=== PATIENT | female | born 1980 | race Caucasian/White ===

== ENCOUNTER 2020-01-13 09:25 | Outpatient (CLI) | payer OTHER, SELFPAY ==
--- NOTE | ~2020-01-13 | US_ITS ---
US abdomen complete EXAMINATION: US Abdomen Complete INDICATION: Right abdominal pain PROCEDURE: Realtime High Resolution abdomen ultrasound. COMPARISON: No prior studies for comparison FINDINGS: Gallbladder within normal limits. No gallstones, pericholecystic fluid, gallbladder wall t hickening or biliary dilatation. Common bile duct measures 2.2 mm. Liver echotexture within normal limits without focal mass. Pancreas within normal limits. Pancreati c tail is obscured by bowel gas. Spleen is unremarkeable. Renal echotexture is within normal limits bilaterally without hydronephrosis, contour deforming mass or renal stone. Right kidney measures 11 c m. Left kidney measures 11.3 cm. Visualized aspects of the aorta and IVC are within normal limits. Portal vein is patent. No sonograph ic Cat's sign indicated by the technologist. IMPRESSION: 1: Normal abdominal ultrasound. Reviewed, dictated and finalized at location A. [employer]
== END 2020-01-13 09:26 | disposition home or self-care (01) ==
PROVIDERS: PCP Family Medicine; Visit Provider Nurse Practitioner Family
DX: R10.31 Right lower quadrant pain (principal); R31.9 Hematuria, unspecified
CPT/HCPCS: 76700

== ENCOUNTER → 2020-02-18 11:50 | Outpatient (CLI) | payer OTHER, SELFPAY ==
--- NOTE | ~2020-02-18 | MM_ITS ---
EXAMINATION: MM screening benjamin BI w marion HISTORY: Screening TECHNIQUE: Craniocaudal and mediolateral oblique 3-D tomosynthesis images were obtained and synthetic 2-D images were generated. CAD analysis was submitted and interpreted. COMPARISON: No prior mammogram is available for comparison at this institution. BREAST PARENCHYMAL COMPOSITION: There are scattered areas of fibroglandular density. FINDINGS: There is no evidence of suspicious mass, calcification, or architectural distortion to sugg est malignancy in either breast. There has been no suspicious interval change. IMPRESSION: 1. No mammographic evidence of malignancy. 2. Recommend routine screening mammography in one year. 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
== END ==
DX: Z12.31 Encounter for screening mammogram for malignant neoplasm of breast (principal)
CPT/HCPCS: 77063; 77067

== ENCOUNTER 2020-09-01 13:54 | Emergency (ER) | payer OTHER, SELFPAY ==
--- NOTE | ~2020-09-01 | XR_ITS ---
EXAMINATION: XR ankle RT min 3V INDICATION: Right ankle pain TECHNIQUE: Four views of the right ankle are obtained. COMPARISON: None available FINDINGS: There is no fracture, dislocation, or subluxation. A plantar calcaneal enthesophyte is note d. The bones, soft tissues, and joint spaces are otherwise normal. IMPRESSION: 1. No acute osseous abnormality. Reviewed, dictated and finalized at location A.
[2020-09-01 14:06] VITALS: BP 121/54; PULSE 70; RESP 16; TEMP 36.6; O2SAT 99
--- NOTE | 2020-09-01 14:26 | ED.LOWEXIN ---
HPI - Extremity Injury (Lower) General Chief Complaint: Extremity Injury, Lower Stated Complaint: rt ankle injury Time Seen by Provider: 09/01/20 14:22 Source: patient and RN notes reviewed Mode of arrival: ambulatory Limitations: no limitations History of Present Illness HPI Narrative: Patient presents today complaining of right ankle pain since yesterday. She was going down some stairs at home and twisted the ankle while walking. Denies numbness or tingling in the leg or foot. She is currently pain-free at rest, which increases with weightbearing. She has applied ice and taken ibuprofen with mild relief. MD complaint: ankle injury Related Data Home Medications Medication Instructions Recorded Confirmed levothyroxine 50 mcg tablet 50 mcg PO DAILY 02/14/19 09/01/20 montelukast 10 mg tablet 10 mg PO DAILY 02/14/19 09/01/20 Allergies Allergy/AdvReac Type Severity Reaction Status Date / Time iodine Allergy Unknown swollen Verified 09/01/20 14:18 neck SHELLFISH Allergy Unknown swollen Uncoded 09/01/20 14:18 neck Review of Systems Review of Systems: Narrative: CONSTITUTIONAL: Denies body aches, fever, chills, or sweats. EYES: Denies visual changes, redness, or discharge. ENT: Denies rhinorrhea, congestion, sore throat, or otalgia. CARDIOVASCULAR: Denies chest pain, palpitations, or edema. RESPIRATORY: Denies cough or dyspnea. GASTROINTESTINAL: Denies abdominal pain, nausea, vomiting, or diarrhea. GENITOURINARY: Denies dysuria or hematuria. SKIN: Denies rash, itching, or wounds. MUSCULOSKELETAL: Denies back pain, or myalgia.+ Right ankle injury NEUROLOGIC: Denies headache, numbness, tingling, or weakness. PSYCH: Denies depression or anxiety. [facility] Family History Family History Other Diabetes mellitus Social History Social History Smoking status: Never smoker Second hand tobacco smoke exposure: No Alcohol intake: current Drinks per week: 4 Substance use: never Substance use type: does not use Gender identity (if verbalized by the patient): Female Comments At time of signature, I have reviewed and agree with nursing past medical, surgical, social and family history unless otherwise noted. Please see nursing chart for further information. There is no relevant family history pertinent to the presenting complaint Exam Narrative: Exam Narrative: GENERAL: Well-appearing, well-nourished, and in no acute distress. HEAD: Normocephalic, atraumatic. EYES: EOMI. No redness or drainage. Conjunctivae normal. ENT: Mucous membranes pink and moist. NECK: Normal AROM. CHEST: No respiratory distress. EXTREMITIES: Right ankle: Tenderness to the medial malleolus. No edema, ecchymosis, or erythema. No tenderness laterally or posteriorly. Soft tissue tenderness to the anterior ankle. Distal sensation intact. Capillary refill normal. Pedal pulse normal. Full AROM with increased pain medially. SKIN: Warm, dry, no rash. Capillary refill normal. Normal skin turgor. NEURO: No focal deficits. Alert and oriented x3. Gait steady. PSYCH: Normal affect. No signs of depression or anxiety. Course Vital Signs Vital signs: Vital Signs Temperature 98 F 09/01/20 14:06 Pulse Rate 70 09/01/20 14:06 Respiratory Rate 16 09/01/20 14:06 Blood Pressure 121/54 L 09/01/20 14:06 Pulse Oximetry 99 09/01/20 14:06 Temperature 98 F 09/01/20 14:06 Pulse Rate 70 09/01/20 14:06 Respiratory Rate 16 09/01/20 14:06 Blood Pressure 121/54 L 09/01/20 14:06 Pulse Oximetry 99 09/01/20 14:06 Reviewed. Pt has been instructed to follow up with her PCP regarding her elevated blood pressure today. MDM - Extremity Injury (Lower) Differential Diagnosis Differential diagnosis: Likely ankle sprain and strain and ankle fracture Critical Care Time Critical Care Time Critical Care Time:
== END 2020-09-01 14:54 | disposition home or self-care (01) ==
PROVIDERS: Emergency Provider Nurse Practitioner; PCP Family Medicine
DX: S93.401A Sprain of unspecified ligament of right ankle, initial encounter (principal); X50.9XXA Other and unspecified overexertion or strenuous movements or postures, initial encounter
CPT/HCPCS: 73610; 99213; G0463

== ENCOUNTER 2021-07-04 09:45 | Emergency (ER) | payer OTHER, SELFPAY ==
--- NOTE | ~2021-07-04 | CT_ITS ---
EXAMINATION: CT lumbar spine wo con DATE: 07/04/2021 11:04 INDICATION: Low back pain TECHNIQUE: Computed tomography (CT) of the lumbar spine was performed without intravenous contrast. A utomated exposure control and iterative reconstruction technique were employed. The dose-length produ ct was 933.27 mGy-cm. COMPARISON: Lumbar spine radiographs dated 07/22/2016 FINDINGS: A degree lumbar dextrocurvature. Sagittal alignment is normal. Vertebral body heights are normal. No fracture. Moderate disc height loss at L5-S1. Remaining disc heights are normal. Mild disc bulge at L 4-L5 without significant central canal stenosis. Minimal to mild lumbar facet osteoarthritis. No cent ral canal or neural foraminal stenosis. Nonobstructing left nephrolithiasis including a 3-4 mm stone at a lower pole calyx of the left kidney and a couple additional 1 mm stones at the upper and lower l eft kidney. No other urolithiasis or hydronephrosis. Bilateral renal cysts measuring 3.4 cm on the ri ght and 3.0 cm on the left. IMPRESSION: 1. Mild lumbar dextrocurvature with moderate spondylosis at the lumbosacral junction and otherwise mi nimal spondylosis. No acute osseous abnormality. 2. Nonobstructing left nephrolithiasis. Reviewed, dictated and finalized at location A. IMPRESSION: 1. Mild lumbar dextrocurvature with moderate spondylosis at the lumbosacral hilary ction and otherwise minimal spondylosis. No acute osseous abnormality. 2. Nonobstructing left nephrolithiasis.
[2021-07-04 09:55] VITALS: BP 145/85; PULSE 87; RESP 14; TEMP 36.2; O2SAT 99
--- NOTE | 2021-07-04 10:05 | ED.BACK ---
HPI - Back Pain/Injury General Chief Complaint: Back Pain/Injury Stated Complaint: severe lower back pain Time Seen by Provider: 07/04/21 10:05 History of Present Illness HPI Narrative: 41-year-old female with a history of dyslipidemia, hypothyroidism, anxiety /depression, asthma, kidney stones presented to the ER with -- low back for the past few weeks. The pain but was this morning which prompted her to come to the ER No fever or chills. No dysuria or hematuria. No history of trauma. No prior history of low back pain. MD elicited complaint: back pain Onset (ago): week(s) Similar Symptoms Previously: Yes Quality: dull and aching Location: lumbar spine Radiation: abdomen Exacerbating factors: none Relieving factors: none Associated symptoms: denies other symptoms Related Data Home Medications Medication Instructions Recorded Confirmed levothyroxine 50 mcg tablet 50 mcg PO DAILY 02/14/19 07/04/21 montelukast 10 mg tablet 10 mg PO DAILY 02/14/19 07/04/21 Allergies Allergy/AdvReac Type Severity Reaction Status Date / Time iodine Allergy Unknown swollen Verified 07/04/21 10:06 neck SHELLFISH Allergy Unknown swollen Uncoded 09/01/20 14:18 neck Review of Systems Review of Systems: All systems reviewed & are unremarkable except as noted in HPI and below Constitutional: Constitutional: Reports as per HPI and Reports no additional constitutional complaints Eyes: Eyes: Reports as per HPI and Reports no additional eye complaints ENT: Reports system reviewed and no additional complaints, except as documented and Reports as per HPI Cardiovascular: Cardiovascular: Reports as per HPI and Reports no additional cardiovascular complaints Respiratory: Respiratory: Reports as per HPI and Reports no additional respiratory complaints Gastrointestinal: Gastrointestinal: Reports as per HPI, Reports no additional gastrointestinal complaints and Reports abdominal pain Comments: Low back pain radiating to the right costovertebral angle Genitourinary: Genitourinary: Reports no additional female genitourinary complaints and Reports as per HPI Musculoskeletal: Musculoskeletal: Reports no additional musculoskeletal complaints and Reports as per HPI Integumentary/Breasts: Skin/Breast: Reports system reviewed and no additional complaints, except as docu and Reports as per HPI Neurologic: Reports system reviewed and no additional complaints, except as documented and Reports as per HPI Psychiatric: Psychiatric: Reports no additional psychiatric complaints and Reports as per HPI Endocrine: Endocrine: Reports no additional endocrine complaints and Reports as per HPI Hematologic/Lymphatic: Hematologic/Lymphatic: Reports no additional hematologic/lymphatic complaints and Reports as per HPI Allergic/Immunologic: Allergic/Immunologic: Reports no additional allergic/immunologic complaints and Reports as per HPI [facility] Past Medical History Medical History (Updated 07/04/21 @ 11:40 by Shamir Baig MD) Kidney stones Family History Family History Other Diabetes mellitus Social History Social History Smoking status: Never smoker Second hand tobacco smoke exposure: No Alcohol intake: current Drinks per week: 4 Substance use: never Substance use type: does not use Gender identity (if verbalized by the patient): Female Exam Const: General: no acute distress and alert Orientation/consciousness: patient oriented x3 HENMT: Head: normal to inspection and contusion Eyes: Conjunctivae: conjunctivae normal Pupils: Equal, round and reactive pupils present Neck: Neck: normal visual inspection and no lymphadenopathy Chest: Chest palpation & inspection: normal inspection of the chest and abnormal inspection of the chest Resp: Effort & Inspection: normal respiratory effort Auscultation: c
[2021-07-04] MEDS: KETOROLAC 30 MG/ML VIAL (*BKC) IV PUSH (10:26)
[2021-07-04 10:31] LABS: Appearance Urine Clear (Clear); Bilirubin Urine Negative (Negative); Color Urine Light Yellow (Yellow); Glucose Urine UA Negative (Negative); Ketones Urine Negative (Negative); Leukocyte Esterase Ur Negative (Negative); Nitrate Urine Negative (Negative); Protein Urine Negative (Negative); Urobilinogen Urine 0.2 mg/dL (0.2-1.0)
[2021-07-04 10:32] LABS: Basophils Absolute Auto 0.02 K/mm3 (0.00-0.10); Basophils Percent Auto 0.3 % (0.0-1.0); Eosinophils Absolute Auto 0.03 K/mm3 (0.02-0.50); Eosinophils Percent Auto 0.5 % (1.0-6.0); Hematocrit 37.1 % (35.0-49.0); Hemoglobin 11.5 g/dL (12.0-15.0); Immature Granulocyte Absolute 0.02 K/mm3 (0.00-0.00); Immature Granulocyte Percent A 0.3 % (0.0-0.0); Lymphocytes Absolute Auto 0.82 K/mm3 (1.10-4.50); Lymphocytes Percent Auto 12.7 % (18.0-42.0); Mean Corpuscular Hemoglobin 27.1 pg (27.0-31.0); Mean Corpuscular Volume 87.3 fL (78.0-102.0); Mean Platelet Volume 10.8 fl (9.2-11.8); Monocytes Absolute Auto 0.32 K/mm3 (0.10-0.90); Neutrophils Absolute Auto 5.3 K/mm3 (1.7-7.2); Neutrophils Percent Auto 81.2 % (50.0-70.0); Platelet Count Result 230 K/mm3 (150-420); Red Blood Count 4.25 M/mm3 (4.20-5.40); Red Cell Distribution Width 13.4 % (11.6-14.4); White Blood Count 6.5 K/mm3 (4.8-10.8)
[2021-07-04 10:36] LABS: Add Urine Microscopic? YES; Bacteria Urine Trace /hpf; Blood Urine Trace-Intact (Negative); Pregnancy On Board Control Positive; RBC Urine 0-2 /hpf (0-2); Squamous Epithelial Cell Urine Rare /hpf (Few); Urine Pregnancy Test Negative; WBC Urine None seen /hpf (0-3)
[2021-07-04 10:42] LABS: Prothrombin Time 10.7 Seconds (9.50-12.10)
[2021-07-04 10:44] LABS: Alanine Aminotransferase 25 U/L (14-59); Albumin Level 3.5 g/dL (3.4-5.0); Alkaline Phosphatase 69 U/L (46-116); Anion Gap 5 mmol/L (8-16); Aspartate Amino Transferase 15 U/L (15-37); Bilirubin,Total 0.2 mg/dL (0.00-1.00); Blood Urea Nitrogen 11 mg/dL (7-18); Calcium 8.4 mg/dL (8.5-10.1); Carbon Dioxide 29 mmol/L (21-32); Chloride 104 mmol/L (98-108); Estimated CRCL calculation 80 ml/min; Estimated Glomerular Filt Rate > 60; Glucose 118 mg/dL (70-99); Lipase 82 U/L (73-393); Osmolality Calculated 286 mOsm/kg (285-295); Potassium 3.8 mmol/L (3.5-5.1); Sodium 138 mmol/L (136-145); Total Protein 7.3 g/dL (6.4-8.2)
[2021-07-04 11:44] VITALS: BP 149/86; PULSE 80; RESP 16; TEMP 36.7; O2SAT 98
== END 2021-07-04 11:48 | disposition home or self-care (01) ==
PROVIDERS: Emergency Provider Internal Medicine Critical Care Medicine; PCP Family Medicine
DX: N20.0 Calculus of kidney (principal); M47.9 Spondylosis, unspecified
CPT/HCPCS: 36415; 72131; 80053; 81001; 81025; 83605; 83690; 85025; 85610; 96374; 99284; J1885

== ENCOUNTER 2021-11-29 20:04 | Emergency (ER) | payer OTHER, SELFPAY ==
[2021-11-29 20:20] VITALS: BP 122/76; PULSE 90; RESP 20; TEMP 37; O2SAT 99
--- NOTE | 2021-11-29 20:20 | ED.ABDPAIN ---
HPI - Abdominal Pain General Chief Complaint: Allergic Reaction Stated Complaint: poss gluten contamination Time Seen by Provider: 11/29/21 20:20 History of Present Illness HPI narrative: 41-year-old female patient with known history of gluten intolerance is here with complaints of nausea vomiting and diarrhea since past Tuesday. Patient states that the 1st day she had several episodes of vomiting and since then has had dry heaving. She has also had multiple loose stools. She has experienced some cramping in the abdomen. She has not taken any [id number] medications since she states that it does not help. Patient states that she has experienced these symptoms in the past also especially when there is some exposure to gluten and she feels that that might have happened on Tuesday after she ate out. She is complaining of feeling lightheaded especially when she stands. She denies passing out. She states that she feels dehydrated and has had similar episodes in the past and needed IV fluids and hydration and nausea medicine. Patient denies any fever or chills. No COVID exposure. COVID vaccination is up-to-date. Related Data Home Medications Medication Instructions Recorded Confirmed levothyroxine 50 mcg tablet 50 mcg PO DAILY 02/14/19 11/29/21 (Synthroid) montelukast 10 mg tablet 10 mg PO DAILY 02/14/19 11/29/21 (Singulair) cyanocobalamin (vitamin B-12) 100 mcg subcut WEEKLY 09/16/21 11/29/21 1,000 mcg/mL injection solution Allergies Allergy/AdvReac Type Severity Reaction Status Date / Time iodine Allergy Unknown swollen Verified 09/16/21 14:45 neck gluten Allergy Nausea Verified 11/29/21 20:15 SHELLFISH Allergy Severe swollen Uncoded 11/29/21 20:16 neck Review of Systems Review of Systems: All systems reviewed & are unremarkable except as noted in HPI and below PMFSH Past Medical History Medical History (Updated 11/29/21 @ 21:11 by Martine Fritz MD) Anxiety Gluten intolerance Hypothyroidism Kidney stones Family History Family History Other Diabetes mellitus Social History Social History Smoking status: Never smoker Second hand tobacco smoke exposure: No Alcohol intake: current Drinks per week: 4 Substance use: never Substance use type: does not use Gender identity (if verbalized by the patient): Female Exam Narrative: Alert female appears in no acute distress. Vital signs are stable. Pulse rate is 90 beats per minute and blood pressure is 122/76. HEENT: normocephalic. Midsized pupils equal and reactive to light. EOMs are intact. Oral mucous membranes are pink and moist. The rest of HEENT is normal. Neck is supple . Lungs are clear bilaterally. Heart tones are regular. Abdomen is soft and nontender. Active bowel sounds. No organomegaly . Extremities are atraumatic. Skin is warm and dry. Neurologic examination is grossly normal. Mood and affect are normal. Course Course Emergency Course: Patient was offered Zofran and Lomotil however she states that she usually gets a L of fluids which makes her feel better. She states that she feels very tired and lightheaded most of time especially today. Discharge Plan Discharge Clinical Impression: Nausea vomiting and diarrhea Patient Disposition: Home, Self-Care Condition: Stable Instructions: Acute Nausea and Vomiting (ED), Acute Diarrhea (ED) Additional Instructions: Advance diet very gradually Stay well hydrated Medication as prescribed Follow up with your MD as needed Prescriptions: New ondansetron HCl 4 mg tablet 4 mg PO Q8H PRN (Reason: nausea and vomiting) Qty: 20 0RF diphenoxylate-atropine [Lomotil] 2.5-0.025 mg tablet 1 tablet PO TID MDD 3 PRN (Reason: diarrhea) 2 Days Qty: 6 0RF No Action diclofenac sodium 50 mg tablet,delayed release (DR/EC
[2021-11-29] MEDS: ONDANSETRON INJ 4 MG/2 ML VIAL IV PUSH (20:57)
[2021-11-29] MEDS: LACTATED RINGERS 1,000 ML 999 ML IV CONT (20:58)
[2021-11-29] MEDS: DIPHENOXYLATE/ATROPINE (*CRX) 2.5 MG TABLET 1 TABLET PO (20:58)
--- NOTE | 2021-11-29 21:12 | PC.NURSE ---
christofer RN went to room, patient complained to hot and sweating. 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 patient requested gluten free upon admission--told christofer was to nauseated to eat
[2021-11-29 21:25] VITALS: BP 126/80; PULSE 70; RESP 18; O2SAT 99
[2021-11-29 22:20] VITALS: BP 129/80; PULSE 70; RESP 18; TEMP 36.6; O2SAT 96
== END 2021-11-29 22:23 | disposition home or self-care (01) ==
PROVIDERS: Emergency Provider Emergency Medicine; PCP Family Medicine
DX: R11.2 Nausea with vomiting, unspecified (principal); R19.7 Diarrhea, unspecified
CPT/HCPCS: 96361; 96374; 99284; A9270; J2405; J7120

== ENCOUNTER 2023-03-21 16:15 | Emergency (ER) | payer OTHER, SELFPAY ==
--- NOTE | ~2023-03-21 | CT_ITS ---
EXAMINATION: CT abdomen pelvis wo con DATE: 03/21/2023 18:15 INDICATION: Lower right abdominal pain TECHNIQUE: Computed tomography (CT) of the abdomen and pelvis was performed without intravenous contr ast. Automated exposure control and iterative reconstruction technique were employed. The dose-length product was 529.05 mGy-cm. COMPARISON: 01/26/2016 FINDINGS: Lung bases are clear. Heart size is normal. No pericardial or pleural effusion. Liver, gallbladder, s pleen, pancreas and bilateral adrenal glands are normal. There are 3 nonobstructing stones at the lef t kidney the largest at the lower pole measuring 5 mm. There is subtle haziness to the fat about the right renal pelvis and suggestion of some urothelial thickening at the right ureteropelvic junction w hich raises concern for ascending urinary tract infection and pyelitis. Normal retrocecal appendix. N o abnormal bowel wall thickening or obstruction. There is subtle haziness to some of the fat along th e otherwise normal bladder which could be seen with cystitis. Anteverted uterus and bilateral adnexa are unremarkable. No free intraperitoneal gas or fluid. No pathologically enlarged abdominal or pelvi c lymphadenopathy. Mild thoracolumbar dextrocurvature with mild spondylosis. IMPRESSION: 1. Subtle haziness to the fat along the bladder and right renal pelvis suspicious for cystitis and as cending urinary tract infection with pyelitis. Correlate with urinalysis. 2. Nonobstructing left nephrolithiasis. Reviewed, dictated and finalized at location A. OM MAN IMPRESSION: 1. Subtle haziness to the fat along the bladder and right renal pelvis suspicio us for cystitis and ascending urinary tract infection with pyelitis. Correlate with urinalysis. 2. Nonobstructing left nephrolithiasis.
[2023-03-21 16:15] VITALS: BP 90/78; PULSE 107; RESP 18; TEMP 37.7; O2SAT 99
--- NOTE | 2023-03-21 16:36 | ED.HA ---
HPI - Headache General Chief Complaint: Headache Stated Complaint: HEADACHE Time Seen by Provider: 03/21/23 16:17 History of Present Illness HPI Narrative: Patient is a 42-year-old female with history of Graves disease here with a headache. She notes that the headache has been present for the last couple of days. It has been feeling similar to her prior migraines, last migraine was several years ago however. She notes that it is associated with diffuse myalgias and 1 episode of emesis this morning. She has had poor p.o. intake today due to not wanting to get up and move around her home. She has taken she additionally notes that this morning she began having some right sided abdominal pain, non radiating, sharp, cramping. She has had some subjective chills at home, no fever. She notes nasal congestion, no cough. 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 Related Data Home Medications Medication Instructions Recorded Confirmed montelukast 10 mg tablet 10 mg PO DAILY 02/14/19 03/21/23 (Singulair) Allergies Allergy/AdvReac Type Severity Reaction Status Date / Time iodine Allergy Unknown swollen Verified 03/21/23 16:17 neck gluten Allergy Nausea Verified 03/21/23 16:17 SHELLFISH Allergy Severe swollen Uncoded 10/25/22 14:13 neck Review of Systems Review of Systems: All systems reviewed & are unremarkable except as noted in HPI and below PMFSH Past Medical History Medical History Anxiety Gluten intolerance Hypothyroidism Kidney stones Family History Family History Other Diabetes mellitus Social History Social History Smoking status: Never smoker Second hand tobacco smoke exposure: No Alcohol intake: current Drinks per week: 4 Substance use: never Substance use type: does not use Living arrangements: with family Occupation/Education: occupation Gender identity (if verbalized by the patient): Female Exam Narrative: GENERAL: Well-appearing, well-nourished, and in no acute distress. HEAD: Normocephalic, atraumatic. EYES: PERRLA and EOMI. ENT: Nares clear. Mucous membranes moist. NECK: Supple. CHEST: Clear to auscultation. No respiratory distress. HEART: Regular rate and rhythm. Normal peripheral pulses. ABDOMEN: Soft, nontender, nondistended. No CVA tenderness. EXTREMITIES: Normal range of motion. No edema. SKIN: Warm, dry, no rash. NEURO: No focal deficits. Alert and oriented x3. PSYCH: Normal mood and affect. Course Course Emergency Course: Chart review performed. Patient here for headache, subjective fever. Tachycardic, borderline hypotension, temp 99.8F. Office visit note on 10/25/22 for wellness check. They note history of hypothyroidism, anxiety, depression, asthma. Patient seen evaluated, nontoxic appearing. Will give some IV fluids, migraine cocktail with Toradol, Tylenol, fluids. Basic lab work, UA, test have been ordered. Lab work reviewed, white blood cell count of 10.4, hemoglobin stable, electrolytes within normal limits, normal renal function, normal LFTs. UA shows 3+ blood, 1+ leukocyte esterase, 3-5 rbc's and 7-9 white blood cells with trace bacteria. Given abdominal pain and this hematuria, will look for possible associated stone. CT ordered. CT shows 3 non-obstructing stones within the left kidney. She has concern for cystitis and pyelitis on the right side on CT. Vitals improved significantly with IVF, minimal leukocytosis. Believe she is safe for outpatient antibiotics at this point with strict return precautions. Rocephin ordered while here. Patient re-evaluated, feeling much better. Vitals have improved here in the ED. Antibiotics and zofran sent to pharmacy. Patient to call primary doctor tomorrow morning to
[2023-03-21 17:04] LABS: SARS-CoV-2 RNA PCR Negative (Negative)
[2023-03-21 17:08] LABS: Influenza A QL RT-PCR Negative (Negative); Influenza B QL RT-PCR Negative (Negative); RSV RNA, RT-PCR Negative (Negative)
[2023-03-21 17:11] LABS: Basophils Absolute Auto 0.01 K/mm3 (0.00-0.10); Basophils Percent Auto 0.1 % (0.0-1.0); Hematocrit 37.6 % (35.0-49.0); Hemoglobin 12.1 g/dL (12.0-15.0); Immature Granulocyte Absolute 0.04 K/mm3 (0.00-0.00); Immature Granulocyte Percent A 0.4 % (0.0-0.0); Lymphocytes Absolute Auto 0.67 K/mm3 (1.10-4.50); Lymphocytes Percent Auto 6.5 % (18.0-42.0); Mean Corpuscular HGB Conc 32.2 g/dL (32.0-36.0); Mean Corpuscular Hemoglobin 27.6 pg (27.0-31.0); Mean Corpuscular Volume 85.6 fL (78.0-102.0); Mean Platelet Volume 9.7 fl (9.2-11.8); Monocytes Percent Auto 6.7 % (2.0-11.0); Neutrophils Percent Auto 86.3 % (50.0-70.0); Platelet Count Result 214 K/mm3 (150-420); Red Blood Count 4.39 M/mm3 (4.20-5.40); Red Cell Distribution Width 13.5 % (11.6-14.4); White Blood Count 10.4 K/mm3 (4.8-10.8)
[2023-03-21 17:14] LABS: Pregnancy On Board Control Positive; Urine Pregnancy Test Negative
[2023-03-21 17:18] LABS: Appearance Urine Clear (Clear); Bilirubin Urine Negative (Negative); Blood Urine 3+ (Negative); Color Urine Light Yellow (Yellow); Glucose Urine UA Negative (Negative); Ketones Urine 1+ (Negative); Leukocyte Esterase Ur 1+ LEU/UL (Negative); Nitrate Urine Negative (Negative); Protein Urine 1+ (Negative); Specific Grav Ur 1.015 (1.010-1.020)
[2023-03-21 17:22] LABS: Add Urine Microscopic? YES; Bacteria Urine Trace /hpf; Squamous Epithelial Cell Urine Rare /hpf (Few)
[2023-03-21 17:28] LABS: Alanine Aminotransferase 35 U/L (14-59); Albumin Level 3.7 g/dL (3.4-5.0); Alkaline Phosphatase 83 U/L (46-116); Anion Gap 11 mmol/L (8-16); Aspartate Amino Transferase 22 U/L (15-37); Bilirubin,Total 0.5 mg/dL (0.00-1.00); Blood Urea Nitrogen 11 mg/dL (7-18); Calcium 8.8 mg/dL (8.5-10.1); Carbon Dioxide 27 mmol/L (21-32); Chloride 101 mmol/L (98-108); Estimated CRCL calculation 74 ml/min; Estimated Glomerular Filt Rate > 60; Glucose 104 mg/dL (70-99); Lipase 19 U/L (16-77); Osmolality Calculated 287 mOsm/kg (285-295); Potassium 3.5 mmol/L (3.5-5.1); Sodium 139 mmol/L (136-145); Total Protein 8.2 g/dL (6.4-8.2)
[2023-03-21] MEDS: ACETAMINOPHEN 500 MG TABLET 1000 MG PO (17:34)
[2023-03-21] MEDS: KETOROLAC 30 MG/ML VIAL (*BKC) 15 MG IV PUSH (17:35)
[2023-03-21] MEDS: LACTATED RINGERS 1,000 ML 999 ML IV CONT (17:36)
--- NOTE | 2023-03-21 18:11 | PC.NURSE ---
PT HAS RETURNED FROM CT AT THIS TIME. PT IS AWAITING RESULTS. AT BEDSIDE. LIGHTS ARE OFF AND PT IS LYING ON STRETCHER WITH IVF INFUSING ORDERED WITHOUT DIFFICULTY.
--- NOTE | 2023-03-21 18:36 | PC.NURSE ---
PT REPORTS SHE HAD PAIN RELIEF, HOWEVER WHEN SHE STANDS THE PAIN RETURNS. ERP IS AWARE. NAD NOTED. WILL CONTINUE TO MONITOR.
[2023-03-21] MEDS: METOCLOPRAMIDE HCL INJ 10 MG/2 ML VIAL IV PUSH (18:46)
[2023-03-21] MEDS: diphenhydrAMINE HCl INJ 50 MG/ML VIAL 25 MG IV PUSH (18:47)
--- NOTE | 2023-03-21 19:25 | PC.NURSE ---
Patient report received from CORTEZ Aldana. patient awake and alert resting on stretcher with IV meds nearing completion. visitor at bedside. patient reports no needs and states she is feeling improved. RN monitoring. call light within reach.
[2023-03-21 19:26] VITALS: BP 124/64; PULSE 78; RESP 16; TEMP 37.3; O2SAT 96
--- NOTE | 2023-03-24 14:12 | PC.NURSE ---
Final urine culture report states, escherichia coli, patient discharged cefpodoxime 200mg 1 po bid x10 days. Per ERP Dr. Laguna, no further treatment or action needed at this time.
--- NOTE | 2023-03-30 12:54 | PC.NURSE ---
FINAL URINE CULTURE RESULTS: ISOLATE 1: GREATER THAN 100,00 CFU/ML OF ESCHERICHIA COLI. NO CHANGE IN TX NEEDED PER C&S AND DR PEARSON.
== END 2023-03-21 19:42 | disposition home or self-care (01) ==
PROVIDERS: Emergency Provider Student in an Organized Health Care Education/Training Program; PCP Family Medicine
DX: N12 Tubulo-interstitial nephritis, not specified as acute or chronic (principal); R51.9 Headache, unspecified; E03.9 Hypothyroidism, unspecified; Z20.822 Contact with and (suspected) exposure to COVID-19
CPT/HCPCS: 36415; 74176; 80053; 81001; 81025; 83690; 85025; 87077; 87086; 87088; 87186; 87637; 96361; 96365; 96375; 99284; J0696; J1200; J1885; J2765; J7120

== ENCOUNTER 2023-04-20 10:48 | Emergency (ER) | payer OTHER, SELFPAY ==
--- NOTE | 2023-04-20 10:49 | ED.FEMALEGU ---
HPI - Female Genitourinary General Chief complaint: Urogenital-Female Stated complaint: kidney infection Time Seen by Provider: 04/20/23 10:49 Source: patient Mode of arrival: ambulatory Limitations: no limitations History of Present Illness HPI Narrative: 43-year-old female with anxiety, migraine, gluten sensitivity( without a diagnosis of celiac sprue), hypothyroidism, kidney infection was treated for UTI on 03/21/2023 with cefpodoxime. The patient's symptoms resolved. She returns to the ER with a 1 day history of -- low back pain -- headache- headache is generalized. -- subjective fever -- nausea without any vomiting or diarrhea. The patient denies any dysuria or hematuria. She feels her symptoms are similar to the UTI she had early last month. MD elicited complaint: UTI Pertinent past history: recurrent UTIs and pyelonephritis Onset (ago): day(s) ( One day ago) Severity: mild Vaginal discharge: none Exacerbating factors: none Relieving factors: none Associated symptoms: headaches, fever and nausea Related Data Home Medications Medication Instructions Recorded Confirmed montelukast 10 mg tablet 10 mg PO DAILY 02/14/19 04/20/23 (Singulair) sertraline 100 mg tablet 150 mg PO DAILY 04/20/23 04/20/23 Allergies Allergy/AdvReac Type Severity Reaction Status Date / Time iodine Allergy Unknown swollen Verified 04/20/23 11:02 neck gluten Allergy Nausea Verified 04/20/23 11:02 SHELLFISH Allergy Severe swollen Uncoded 04/20/23 11:02 neck Review of Systems Review of Systems: All systems reviewed & are unremarkable except as noted in HPI and below Constitutional: Constitutional: Reports as per HPI and Reports no additional constitutional complaints Eyes: Eyes: Reports as per HPI and Reports no additional eye complaints ENT: Reports system reviewed and no additional complaints, except as documented Cardiovascular: Cardiovascular: Reports as per HPI and Reports no additional cardiovascular complaints Respiratory: Respiratory: Reports as per HPI and Reports no additional respiratory complaints Gastrointestinal: Gastrointestinal: Reports as per HPI, Reports no additional gastrointestinal complaints and Reports nausea Genitourinary: Genitourinary: Reports no additional female genitourinary complaints Musculoskeletal: Musculoskeletal: Reports no additional musculoskeletal complaints and Reports as per HPI Integumentary/Breasts: Skin/Breast: Reports system reviewed and no additional complaints, except as docu and Reports as per HPI Neurologic: Reports system reviewed and no additional complaints, except as documented and Reports as per HPI Psychiatric: Psychiatric: Reports no additional psychiatric complaints and Reports as per HPI Endocrine: Endocrine: Reports no additional endocrine complaints and Reports as per HPI Hematologic/Lymphatic: Hematologic/Lymphatic: Reports no additional hematologic/lymphatic complaints and Reports as per HPI Allergic/Immunologic: Allergic/Immunologic: Reports no additional allergic/immunologic complaints and Reports as per HPI [facility] Past Medical History Medical History Anxiety Gluten intolerance Hypothyroidism Kidney stones Family History Family History Other Diabetes mellitus Social History Social History Smoking status: Never smoker Second hand tobacco smoke exposure: No Alcohol intake: current Drinks per week: 4 Substance use: never Substance use type: does not use Living arrangements: with family Occupation/Education: occupation Gender identity (if verbalized by the patient): Female Exam Const: General: no acute distress Orientation/consciousness: patient oriented x3 Limitations: no limitations HENMT: Head: normal to inspection Ears: external ears normal
[2023-04-20 10:52] VITALS: BP 127/53; PULSE 74; RESP 19; TEMP 36.8; O2SAT 98
[2023-04-20 11:14] LABS: Appearance Urine Clear (Clear); Bilirubin Urine Negative (Negative); Blood Urine 2+ (Negative); Color Urine Light Yellow (Yellow); Glucose Urine UA Negative (Negative); Ketones Urine Trace (Negative); Leukocyte Esterase Ur Negative LEU/UL (Negative); Nitrate Urine Negative (Negative); Protein Urine Negative (Negative); Specific Grav Ur <= 1.005 (1.010-1.020); Urobilinogen Urine 0.2 mg/dL (0.2-1.0)
[2023-04-20 11:18] LABS: Add Urine Microscopic? YES; Bacteria Urine Trace /hpf; Squamous Epithelial Cell Urine Rare /hpf (Few); WBC Urine None seen /hpf (0-3)
== END 2023-04-20 11:48 | disposition home or self-care (01) ==
LOC: CHSED 11:30
PROVIDERS: Emergency Provider Internal Medicine Critical Care Medicine; PCP Family Medicine
DX: B34.9 Viral infection, unspecified (principal); E03.9 Hypothyroidism, unspecified; F41.9 Anxiety disorder, unspecified; Z79.899 Other long term (current) drug therapy
CPT/HCPCS: 81001; 99283

== ENCOUNTER 2024-09-12 09:19 | Outpatient (CLI) | payer OTHER, SELFPAY ==
--- NOTE | ~2024-09-12 | MM_ITS ---
EXAMINATION: MM screening benjamin BI w marion HISTORY: Screening mammogram TECHNIQUE: Craniocaudal and mediolateral oblique 3-D tomosynthesis images were obtained and synthetic 2-D images were generated. CAD analysis was submitted and interpreted. COMPARISON: 02/18/2020 BREAST PARENCHYMAL COMPOSITION:Not Dense. There are scattered areas of fibroglandular density. FINDINGS: No suspicious mass, calcification, or architectural distortion are identified in either bushra ast to suggest malignancy. There has been no suspicious interval change. IMPRESSION: No mammographic evidence of malignancy. Recommend routine screening mammography in one year. BI-RADS Category 1: Negative Reviewed, dictated and finalized at location .
--- OUTSIDE RECORDS SUMMARY | 2024-09-12 09:31 | XMS_ITS ---
Author Organization [facility] [place] ([address]) Address [address] [place] [address] Care Team Providers Care Processor Solid Propellant Name Role Phone Carlos Rojo MD Primary Care Provider UnavailMargareth Zepeda Unavailable [phone] Medications Medication SIG (Take, Route, Frequency, Duration) Notes Start Date End Date Status SINGULAIR 10 mg 1 tab(s) orally once a day (in the evening); Duration: 90 days Active XOPENEX HFA CFC free 45 mcg/inh 2 puff(s) inhaled Q4-6 hours, PRN and per the asthma action plan; Duration: 30 day(s) Active SYMBICORT 160 mcg-4.5 mcg/inh 2 puff(s) inhaled 2 times a day; Duration: 90 days Active PREDNISONE 20 mg 3 tab(s) orally once a day; Duration: 5 day(s) 11/09/2022 Active UNITHROID 75 mcg (0.075 mg) 1 tab(s) orally once a day; Duration: 30 day(s) 08/03/2022 Active NASACORT ALLERGY 24HR 55 mcg/inh 2 spray(s) intranasally once a day; Duration: 30 day(s) Active ZYRTEC 10 mg 1 tab(s) orally once a day Active ATORVASTATIN 10 mg 1 tab(s) orally once a day Active SERTRALINE 100 mg 1 tab(s) orally once a day Active Encounters Encounter Location Date Provider Diagnosis [facility] [place] [address] [place] [address] 03/23/2023 Margareth Lambert Plan Of Treatment No Information Progress Notes * Latonya ROMERO RDOB:05/1980 (44 yo F)Acc No.[id number]:03/23/2023 Asthma F/U Patient: Latonya GOOD Provider: Keon Lambert MD :1980 A ge:42 Y S ex:Female Date:03/23/2023 Address:[address] [place] [address] Pcp:Carlos Rojo MD Subjective: * Chief Complaints: * * Medical History: * Medications: T aking ZYRTEC 10 mg tablet 1 tab(s) orally once a day , Taking NASACORT ALLERGY 24HR 55 mcg/inh spray 2 spray(s) intranasally once a day , Taking SERTRALINE 100 mg tablet 1 tab(s) orally once a day , Taking ATORVASTATIN 10 mg tablet 1 tab(s) orally once a day , Taking UNITHROID 75 mcg (0.075 mg) tablet 1 tab(s) orally once a day , Taking PREDNISONE 20 mg tablet 3 tab(s) orally once a day , Taking SYMBICORT 160 mcg- 4.5 mcg/inh aerosol 2 puff(s) inhaled 2 times a day , Taking XOPENEX HFA CFC free 45 mcg/inh aerosol 2 puff(s) inhaled Q4-6 hours, PRN and per the asthma action plan , Taking SINGULAIR 10 mg tablet 1 tab(s) orally once a day (in the evening) Objective: * Vitals: Assessment: Plan: * Treatment: * Billing Information: * Visit Code: * Procedure Codes: * Electronic signature of Edith Lambert MD on 09/12/2024 at 09:31 AM CDT Sign off status: Pending * Provider: Keon Lambert MD Date: 03/23/2023 Generated for Ludy arteaga/Darryl/Toan on: 09/12/2024 09:31 AM CDT
--- OUTSIDE RECORDS SUMMARY | 2024-09-12 09:31 | XMS_ITS | Clinical Summary ---
Author Organization [facility] Address [address] [place] [address] Care Team Providers Care Furniture Crater Name Role Phone Carlos Rojo MD Primary Care Provider [phone] Ofe Garcia MD Unavailable Unavailabl e Allergies Active Allergy Reactions Criticality Noted Date Comments Gluten Meal GI Upset 07/02/2021 Iodine Unknown 05/28/2021 Medications sertraline 100 MG tablet Take 1.5 tablets (150 mg total) by mouth daily. Active montelukast 10 MG tablet Take 1 tablet (10 mg total) by mouth nightly at bedtime. Active atorvastatin 10 MG tablet 05/11/2021 Active cetirizine (ZYRTEC) 10 MG tablet daily. Active UNITHROID 100 MCG tablet 07/23/2022 Active mometasone-form oterol (DULERA) 100-5 MCG/ACT inhaler every 12 (twelve) hours. Active Active Problems Problem Noted Date Diagnosed Date Acquired hypothyroidism 05/26/2016 S/P section 11/02/2012 Heart murmur 02/08/2011 Family History Medical History Relation Comments Depression Mother Relation Status Comments Maternal Grandmother Mother Paternal Grandfather Social History Tobacco Use Types Packs/Day Years Used Date Smoking Tobacco: Never Smokeless Tobacco: Never Alcohol Use Standard Drinks/Week Comments Yes 0 (1 standard drink = 0.6 oz pur e alcohol) Comments Unknown Sex and Gender Information Value Date Recorded Sex Assigned at Not on file Legal Sex Female 2:25 PM BRICKLAYER Gender Identity Not on file Sexual Orientation Not on file 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 on file Not on file Not on lisette e Last Filed Vital Signs Vital Sign Reading Time Taken Comments Blood Pressure 111/74 10/28/2022 10:53 AM CDT Pulse 70 10/28/2022 10:52 AM CDT Temperature - - Respiratory Rate 16 10/28/2022 10:52 AM CDT Oxygen Saturation 100% 10/28/2022 10:52 AM CDT Inhaled Oxygen Concentration - - Weight 83.1 kg (183 lb 3.2 oz) 10/28/2022 10:52 AM CDT Height 167.6 cm (5' 6) 10/28/2022 10:52 AM CDT Body Mass Index 29.57 10/28/2022 10:52 AM CDT Plan of Treatment Health Maintenance Due Date Last Done Comments Cervical Cancer Screening Pa p Smear (Age 30 to 64) Every 3 Years 1978 Colorectal Cancer Screening Colonoscopy (10 Years) 1978 Annual Physical 1981 Hepatitis C 1996 Hepatitis B Vaccines (1 of 3 - 19+ 3-dose series) 1997 Cervical Cancer Screening Pa p with HPV Testing (Age 30 to 64) Every 5 Years 2008 Cervical Cancer Screening wi HPV 2008 Mammogram Screening 2018 DTaP, Tdap and Td Vaccines ( 2 - Td or Tdap) 07/10/2019 07/09/2009 COVID-19 Vaccine (4 - 2023-2 5 season) 2023 03/13/2021, 05/17/2020, 04/19/2020 Meningococcal B Vaccine Aged Out No l onger eligible based on patient's age to complete this topic Meningococcal Vaccine Aged Out No larry bela eligible based on patient's age to complete this topic Pneumococcal Vaccine: Pediatrics (0 to 5 Years) and At-Risk Patients (6 to 49 Years) Aged Out No longer eligible b ased on patient's age to complete this topic RSV Immunizations Under 20 Months Aged Out No longer eligible b ased on patient's age to complete this topic Insurance [facility] Care Teams Furniture Crater Relationship Specialty Start Date End Date Carlos Rojo MD [address] [place] [address] PCP - General FAMILY PRACTICE 05/12/21 Ofe Garcia MD [address] [place] [address] Consulting Physician CARDIOVASCULAR DISEASE 05/12/21
--- OUTSIDE RECORDS SUMMARY | 2024-09-12 09:31 | XMS_ITS | Patient Health Record ---
Author Organization [facility] Address [address] [place], [place] [address] Care Team Providers Care Blast Furnace Operator Name Role Phone GRICELDA GREEN Primary Care Provider Lata Moran Unavailable [phone] Froylan MERRITT, Gomez Unavailable Unav ailable REASON FOR REFERRAL No Information MEDICATIONS Medication SIG (Take, Route, Frequency, Duration) Notes Start Date End Date Status ZyrTEC 10 mg 1 tab(s) orally once a day Active Xopenex HFA CFC free 45 mcg/inh 2 puff(s) inhaled every 4 hours Active sertraline 150 mg 1 tab(s) orally once a day Active Dulera 5 mcg-100 mcg/inh 2 puff(s) inhal ed 2 times a day Active Tumeric orally Active ergocalciferol 50,000 intl units 1 cap(s) orally once a week for 30 Active control as directed Acti ve Synthroid 50 mcg (0.05 mg) 1 tab(s) oral ly once a day Active SOCIAL HISTORY Tobacco Use: Social History Observation Description Date Details (start date - stop date) Never Smoker NA - NA Sex Assigned At : Social History Observation Description Sex Assigned At Unknown Tobacco Use: Question Answer Notes Smoking Status nonsmoker PROBLEMS Problem Type ICD Code Onset Dates Problem Status W/U Status Risk SNOMED Code Notes Problem Other care home (current) drug therapy (Z79.899) Active confirmed 592253096 Problem Vitamin D deficiency (E55.9) Active confirmed 88094797 Problem Primary generalized (osteo)arthritis (M15.0) Active confirmed 989860064 Problem Never smoked cigarettes (Z78.9) Active confirmed 411517703 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) Active confirmed 73997981 Problem Asymptomatic microscopic hematuria (R31.21) Active confirmed 130883831 PLAN OF TREATMENT Pending Test Test Name Order Date X ray : Spines, lumbar- outside order X ray : Shoulder, left- outside order X ray : Shoulder, right- outside order 0 07/21/2016 X ray : Knee, right 2 views- outside ord er 07/21/2016 X ray : Knee, left 2 views- outside orde r 07/21/2016 Future Test Test Name Order Date VITAMIN D, 25-HYDROXY, LC/MS/MS 12/03/19 17 lab slip given 12/02/2016 Insurance Providers Payer Name Payer Address Payer Phone Subscriber Number Group Number Insured Name Patient Relationship to Insured Coverage Start Date Coverage End Date [employer] [address] [place] [address] [id number] Yon Cramer II Spouse - patient is the spouse of the insured 7 MEDICAL (GENERAL) HISTORY Medical History History ICD Code tension headaches swollen glands in neck graves disease asthma heart murmur constipation kidney stones anxiety Surgical History Surgery Date(Month/Year) C section
--- OUTSIDE RECORDS SUMMARY | 2024-09-12 09:32 | XMS_ITS | Clinical Summary ---
Author Organization [address] Address [facility] [place] [address] Care Team Providers Care Pump Erector Helper Name Role Phone Carlos Rojo MD Primary Care Provider Allergies Active Allergy Reactions Criticality Noted Date Comments Iodine Shellfish Containing Products Hives High 2009 Medications sertraline (ZOLOFT) 100 mg tablet Take 1.5 tablets (150 mg total) by mouth daily 1 Active montelukast (SINGULAIR) 10 mg tablet Take 1 tablet (10 mg total) by mouth every evening 1 Active mometasone-formot venita (Dulera) 100-5 mcg/actuation inhaler every 12 hours Activ e levothyroxine (Synthroid) 50 mcg tablet daily Active ergocalciferol (VITAMIN D) 50,000 unit capsule 1 cap(s) Active atorvastatin (LIPITOR) 10 mg tablet 0 Active beclomethasone dipropionate (QVAR REDIHALER) 80 mcg/actuation inhaler Inhale Active budesonide-formot Venita (SYMBICORT) 160-4.5 mcg/actuation inhaler 3 Active cetirizine (ZyrTEC) 10 mg tablet daily Active cyanocobalamin (Vitamin B-12) 1,000 mcg/mL injection 3 Active desogestreL-ethin yl estradioL (APRI) 0.15-0.03 mg per tablet Take 1 tablet by mouth daily Active levalbuterol (XOPENEX HFA) 45 mcg/actuation inhaler Inhale 4 times daily Active medroxyPROGESTERo ne (PROVERA) 10 mg tablet 3 Active triamcinolone (NASACORT) 55 mcg nasal inhaler Administer 1 spray into affected nostril(s) daily Active predniSONE (DELTASONE) 10 mg tablet Take 5 tabs (50mg) daily for 2 days, then take 4 tabs (40mg) daily for 2 days. Continue to decrease by 1 tab (10mg) every 2 days until gone. 30 tablet 3 Active Active Problems Problem Noted Date Diagnosed Date Asymptomatic microscopic hematuria 12/16/2022 Rolly's thyroiditis 12/16/2022 Primary generalized (osteo)arthritis 12/16/2022 Vitamin D deficiency 12/16/2022 Acquired hypothyroidism 05/26/2016 Heart murmur 02/08/2011 Knee pain 09/09/2010 Medical History Medical History Date Comments Calculus of kidney 2007 kidney stones Personal history of other di seases of the respiratory system Personal history of asthma - (Added by RAS Conv) Anxiety disorder Anxiety - (Adde d by RAS Conv) Personal history of other di seases of urinary system History of hematuria - (Adde d by RAS Conv) Family History Medical History Relation Name Comments Depression Mother Depression; Relation Name Status Comments Mother Social History Tobacco Use Types Packs/Day Years Used Date Smoking Tobacco: Never Alcohol Use Standard Drinks/Week Comments Yes 0 (1 standard drink = 0.6 oz pur e alcohol) Comments Unknown Sex and Gender Information Value Date Recorded Sex Assigned at Not on file Legal Sex 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:54 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 Gender Identity Not on file Sexual Orientation Not on file Obstetrics History Last Filed Vital Signs Vital Sign Reading Time Taken Comments Blood Pressure 102/74 12/16/2022 5:53 PM CDT Pulse 77 12/16/2022 5:53 PM CDT Temperature 37.2 C (99 F) 12/16/2022 5:53 PM CDT Respiratory Rate 20 12/16/2022 5:53 PM CDT Oxygen Saturation 99% 12/16/2022 5:53 PM CDT Inhaled Oxygen Concentration - - Weight 83.9 kg (185 lb) 12/16/2022 5:53 PM CDT Height 167.6 cm (5' 6) 12/16/2022 5:53 PM CDT Body Mass Index 29.86 12/16/2022 5:53 PM CDT Plan of Treatment Health Maintenance Due Date Last Done Comments Breast Cancer Screening-Mammogram 1978 Cervical Cancer Screening 1978 Colon Cancer Screening-Colonoscopy 1978 Depression Screening 1978 Hepatitis C Screening 1978 Hepatitis B Screening 1996 Regular Well Visit/Exam 18-64 1996 DTaP/Tdap/Td Vaccine (2 - Td or Tdap) 07/10/2019 07/09/2009 Covid-19 Vaccine (3 - season) 2023 05/17/2020, 04/19/2020 Influenza Vaccine (Season Ended) 2024 02/18/2020, 04/26/2019, 01/12/2017, Additional history exists HPV Vaccines Aged Out No longer eligi ble based on patient's age to complete this topic Pneumococcal vaccine <65 Aged Out No longer eligible based on patient's age to complete this topic Insurance [facility] Care Teams Pump Erector Helper Relationship Specialty Start Date End Date Carlos Rojo MD [address] [facility] [address] [place] [address] PCP - General Family Medicine 12/16/22
--- OUTSIDE RECORDS SUMMARY | 2024-09-12 09:32 | XMS_ITS | Referral Summary ---
Author Organization [address] Address [facility] [place] [address] Care Team Providers Care Hourly Shift Manager Name Role Phone Carlos Rojo MD Primary [...] 05/26/2016 Heart murmur 02/08/2011 Knee pain 09/09/2010 Social History Tobacco Use Types Packs/Day Years Used Date Smoking Tobacco: Never Alcohol Use Standard Drinks/Week Comments Yes 0 (1 standard drink = 0.6 oz pur e alcohol) Comments Unknown Sex and Gender Information Value Date Recorded Sex Assigned at Not on file Legal Sex Female 11:54 PM GAS FLOW REGULATOR Gender Identity Not on file Sexual Orientation Not on file Last Filed Vital Signs Vital Sign Reading [...] 12/16/2022 5:53 PM CDT Plan of Treatment Not on file [place] [address] Care Teams Hourly Shift Manager Relationship Specialty Start Date End Date Carlos Rojo MD [address] [facility] [address] [place] [address] PCP - General Family Medicine 12/16/22
--- OUTSIDE RECORDS SUMMARY | 2024-09-12 09:32 | XMS_ITS | Patient Health Record ---
Author Organization [facility] [employer] [place] ([address]) Address [address] [place] [address] Care Team Providers Care Manager Risk Management Name Role Phone Carlos Rojo MD Primary Care Provider Margareth Ibarra Unavailable [phone] Allergies No Known Allergies Reason For Referral No Information Medications Medication SIG (Take, Route, Frequency, Duration) Notes Start Date End Date Status Xopenex HFA 45 MCG/ACT 2 puff(s) inhaled Q4-6 hours, PRN and per the asthma action plan; Duration: 30 day(s) Active ZyrTEC Allergy 10 MG 1 tab(s) orally onc e a day Active ATORVASTATIN 10 mg 1 tab(s) orally once a day Active Sertraline HCl 100 MG 1 tab(s) orally once a day Active SERTRALINE 100 mg 1 tab(s) orally once a day Active Nasacort Allergy 24HR 55 MCG/ACT 2 spray(s) intranasally once a day; Duration: 30 day(s) Active Unithroid 75 MCG (0.075 MG) 1 TAB(S) ORALLY ONCE A DAY; Duration: 30 DAY(S) *Please review and pick correct strength-formulati on from Medispan options. If intended option is not shown, discontinue and re-order from Quick Search* 08/03/2022 Active Atorvastatin Calcium 10 MG 1 tab(s) orally once a day Active Symbicort 160-4.5 MCG/ACT 2 puff(s) inhaled 2 times a day; Duration: 90 days Active predniSONE 20 MG 3 tab(s) orally once a day; Duration: 5 day(s) 11/09/2022 Active SINGULAIR 10 mg 1 tab(s) orally once [...] a day; Duration: 5 day(s) 11/09/2022 Active NASACORT ALLERGY 24HR 55 mcg/inh 2 spray(s) intranasally once a day; Duration: 30 day(s) Active ZYRTEC 10 mg 1 tab(s) orally once a day Active Singulair 10 MG 1 tab(s) orally once a day (in the evening); Duration: 90 days Active UNITHROID 75 mcg (0.075 mg) 1 tab(s) orally once a day; Duration: 30 day(s) 08/03/2022 Active Immunizations Vaccine Route Administration Date Status Comme nts NOC Flucelevax Quadrivalent IM Intramuscular 02/18/2020 Administered Influenza Unknown 11/13/2014 Administered Influenza Unknown 12/22/2016 Administered Influenza Unknown 05/09/2018 Refused Social History Tobacco Use: Social History Observation Description Date Details (start date - stop date) Never Smoker NA - NA Smoking Smart Form: Question Answer Notes Are you a: never smoker Additional Findings:Tobacco Non-User Non-smoker for personal reasons Problems Problem Type SNOMED Code ICD Code Onset Dates Problem Status W/U Status Risk Notes Problem Information temporarily unavailable Other chronic allergic conjunctivitis (H10.45) Active confirmed Problem Information temporarily unavailable Allergic rhinitis due to pollen (J30.1) Active confirmed Problem Information temporarily unavailable Allergic rhinitis due to animal (cat) (dog) hair and dander (J30.81) Active confirmed Problem Information temporarily unavailable Other allergic rhinitis (J30.89) Active confirmed Problem Information temporarily unavailable Moderate persistent asthma, uncomplicated (J45.40) Active confirmed Problem Information temporarily unavailable Moderate persistent asthma with (acute) exacerbation (J45.41) Active confirmed Problem Information temporarily unavailable Allergic rhinitis due to pollen (J30.1) Active confirmed Problem Information temporarily unavailable Allergic rhinitis due to animal (cat) (dog) hair and dander (J30.81) Active confirmed Problem Information temporarily unavailable Other allergic rhinitis (J30.89) Active confirmed Problem Information temporarily unavailable Other chronic allergic conjunctivitis (H10.45) Active confirmed Problem Information temporarily unavailable 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) Active confirmed Plan Of Treatment No Information Insurance Providers Payer Name Payer Address Payer Phone Subscriber Number Group Number Insured Name Patient Relationship to Insured Coverage Start Date Coverage End Date [facility] [address] [address] [place], [place] [phone] [id number] Latonya Cramer Self - patient is the insured Medical (General) History Medical History History ICD Code Graves' disease Moderate persistent asthma, uncomplicate d J45.40 Allergic rhinitis due to pollen J30.1 Allergic rhinitis due to animal (cat) (d og) hair and dander J30.81 Other allergic rhinitis J30.89 Surgical History Surgery Date(Month/Year) x 4 1994,2009,2010,2012
--- OUTSIDE RECORDS SUMMARY | 2024-09-12 09:32 | XMS_ITS ---
Author Organization [facility] [place] ([address]) Address [address] [place] [address] Care Team Providers Care Pulper Tender Name Role Phone Carlos Rojo MD Primary Care Provider Unavaila Margareth Aguilera Unavailable [phone] ZZ-Migration, Provider Unavailable Unavailab le REASON FOR VISIT Multum To [facility] Conversion Encounter Medications Medication SIG (Take, Route, [...] review and pick correct strength-formulati on from [facility] options. If intended option is not shown, [...] Active Encounters Encounter Location Date Provider Diagnosis [address] [place] [address] 08/27/2023 Provider ANT-Migration Plan Of Treatment No Information Progress Notes * Latonya ROMERO RDOB:05/1980 (44 yo F)Acc No.[id number]:08/27/2023 Patient: Latonya GOOD Provider: Zara Malik :1980 A ge:43 Y S ex:Female Date:08/27/2023 Address:[address] [place], [place] [address] Pcp:Carlos Rojo MD Subjective: * Chief Complaints: [...] Procedure Codes: * Electronic signature of Prov jon ZZ-Migration on 09/12/2024 at 09:31 AM CDT Sign off status: Pending * Provider: Zara Malik Date: 0 08/27/2023 Generated for Ludy arteaga/Darryl/Greggitting on: 0 09/12/2024 09:31 AM CDT
== END 2024-09-12 09:20 | disposition home or self-care (01) ==
LOC: CHSIMG 09:22
PROVIDERS: PCP Family Medicine
DX: Z12.31 Encounter for screening mammogram for malignant neoplasm of breast (principal)
CPT/HCPCS: 77063; 77067

== ENCOUNTER 2024-10-19 21:39 | Emergency (ER) | payer OTHER, SELFPAY ==
--- OUTSIDE RECORDS SUMMARY | 2024-10-19 21:42 | XMS_ITS | Encounter Summary ---
Author Organization [facility] Address [address] [place] [address] Care Team Providers Care Letterpress Setter Name Role Phone Carlos Rojo MD Primary Care Provider [phone] Reason for Visit * Reason Comments Medication Refill Encounter Details Date Type Department Care Team (Late st Contact Info) Description 04/08/2017 Refill [facility] Endocrinology [address] [place] [address] Araceli Castellon MD [address] [place] [address] Social History Tobacco Use Types Packs/Day Years Used Date Smoking Tobacco: Never Alcohol Use Standard Drinks/Week Comments No 0 (1 standard drink = 0.6 oz pur e alcohol) Comments Unknown Sex and Gender Information Value Date Recorded Sex Assigned at Not on file 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 ISHING SYSTEMS ANALYST documented in this encounter Plan of Treatment Not on file documented as of this encounter Visit Diagnoses Not on filedocumented in this encounter Care Teams Letterpress Setter Relationship Specialty Start Date End Date Carlos Rojo MD PCP - General Family Practice 06/01/11 documented as of this encounter
--- OUTSIDE RECORDS SUMMARY | 2024-10-19 21:42 | XMS_ITS | Patient Health Record ---
Author Organization [facility] [employer] [place] ([address]) Address [address] [place] [address] Care Team Providers Care Income Tax Preparer Name Role Phone Carlos Rojo MD Primary Care Provider Margareth Ibarra Unavailable [phone] Allergies No Known Allergies Reason For Referral [...] Vaccine Route Administration Date Status Comme nts Influenza Unknown 11/13/2014 Administered Influenza Unknown 12/22/2016 Administered Influenza Unknown 05/09/2018 Refused NOC Flucelevax Quadrivalent IM Intramuscular 02/18/2020 Administered Social History Tobacco Use: Social History Observation [...] Insured Coverage Start Date Coverage End Date [facility] [address] [address] [place], [place] [phone] [id number] Latonya Cramer Self - patient is the insured Medical (General) History Medical History History ICD Code Graves' disease Moderate persistent asthma, uncomplicate d J45.40 Allergic rhinitis due to pollen J30.1 Allergic rhinitis due to animal (cat) (d og) hair and dander J30.81 Other allergic rhinitis J30.89 Surgical History Surgery Date(Month/Year) x 4 1994,2009,2010,2012
--- OUTSIDE RECORDS SUMMARY | 2024-10-19 21:42 | XMS_ITS | Clinical Summary ---
Author Organization [facility] Address [address] [place] [address] Phone Care Team Providers Care Director Cost Name Role Phone Carlos Rojo MD Primary Care Provider Allergies Active Allergy Reactions Criticality Noted Date Comments Iodine Hives High 02/10/2011 Shellfish Containing Products Hives High 2009 Medications sertraline (ZOLOFT) 50 mg tablet Take 150 mg by mouth daily. Active levalbuterol HFA (XOPENEX HFA) 45 mcg/Actuation HFA Aerosol Inhaler Take by inhalation every 6 hours. Active beclomethasone dipropionate (QVAR) 80 mcg/Actuation Aerosol Take by inhalation. Active cetirizine (ZyrTEC) 10 mg tablet Take 10 mg by mouth daily. Active montelukast (SINGULAIR) 10 mg tablet Take 10 mg by mouth daily at bedtime. Active triamcinolone acetonide (NASACORT AQ) 55 mcg nasal spray Administer 1 [place] in each nostril daily. Active desogestrel-ethin yl estradiol (RECLIPSEN, 28,) 0.15-30 mg-mcg Tablet Take 1 Tablet by mouth daily. Active atorvastatin (LIPITOR) 10 mg tablet Take 1 Tablet by mouth daily. 0 Active Synthroid 75 mcg tablet TAKE 1 TABLET BY MOUTH EVERY MORNING WITHOUT FOOD 30 Tablet 11 0 Active Active Problems Problem Noted Date Diagnosed Date Acquired hypothyroidism 05/26/2016 S/P section 11/0211/02/2012 Heart murmur 02/08/2011 Resolved Problems Problem Noted Date Diagnosed Date Resolved Date r/o labor, , Prev c/sect x 3, 37wk 10/26/2012 11/02/2012 Hyperthyroidism 02/09/2011 05/26/2016 HTN (hypertension) 02/08/2011 5 Headache(784.0) 02/08/2011 09/30/2011 CS 02/02, high BPs, SOTELO s/p M gSO4, PIH labs wnl, hyperthyroidism-PTU, hopsitalist & endocrine consult, lab 600q8 02/07/2011 11/02/2012 C Section (02/02) [bp procar bety 10mg x1, headache labs wnl 02/01 & 02/05] 02/02/2011 013 contractions, UA neg 12/20/2010 09/30/2011 Abdominal pain in , antepartum 10/27/2010 09/30/2011 C Section (07/07) 07/07/2009 11/02/2012 Immunizations Immunization Administration Dates Next Due (ADACEL/BOOSTRIX)(10 YR UP) TDAP VACCINE, 0.5ML, IM 07/09/2009 Influenza A (H1N1) Vaccine IM 01/15/2009 Influenza A (H1N1) Vaccine IM VFC 12/03/2010 Influenza Seasonal Unspecified Formulation IM ,01/15/2009 Family History Medical History Relation Name Comments Healthy Daughter Healthy Father Healthy Mother Healthy Sister Relation Name Status Comments Daughter Alive Father Alive Mother Alive Sister Alive Social History Tobacco Use Types Packs/Day Years Used Date Smoking Tobacco: Never Alcohol Use Standard Drinks/Week Comments No 0 (1 standard drink = 0.6 oz pur e alcohol) Comments Unknown Sex and Gender Information Value Date Recorded Sex Assigned at Not on file 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 Sex 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 Gender Identity Not on file Sexual Orientation Not on file Occupation Industry Job Start Date Job End Date Not on file Not on file Not on file Not on file Last Filed Vital Signs Vital Sign Reading Time Taken Comments Blood Pressure 124/78 08/22/2018 1:13 PM CDT Pulse 76 08/22/2018 1:13 PM CDT Temperature 36.7 C (98.1 F) 11/08/2012 1:22 AM CDT Respiratory Rate 17 11/08/2012 1:22 AM CDT Oxygen Saturation 97% 11/08/2012 1:22 AM CDT Inhaled Oxygen Concentration - - Weight 83.9 kg (185 lb) 08/23/2019 2:59 PM CDT Height 167.6 cm (5' 6) 08/23/2019 2:59 PM CDT Body Mass Index 29.86 08/23/2019 2:59 PM CDT Plan of Treatment Health Maintenance Due Date Last Done Comments HEPATITIS B VACCINES (1 of 3 - 19+ 3-dose series) 1997 HPV/Cotest (21-29) 1999 CERVICAL CANCER SCREENING 2008 HPV/Cotest (30-65) 2008 PAP SMEAR 2008 BREAST CANCER SCREENING 2018 DTAP/TDAP/TD VACCINES (2 - T d or Tdap) 07/10/2019 07/09/2009 COLORECTAL SCREENING 2023 Colorectal Cancer Screening 2023 FIT-DNA Q 3 years 2023 FIT/FOBT Q 1 year 2023 Flex Sig/CT Colonography Q 5 years 2023 INFLUENZA VACCINE (#1) 2024 2, 01/15/2009 HPV VACCINES Aged Out No longer eligi ble based on patient's age to complete this topic Advance Directives For more information, please contact: [phone] * Full Code (Latest Code Status on File) Date Activated Date Inactivated Comments 11/02/2012 8:56 AM 11/06/2012 11:47 AM * Full Code Date Activated Date Inactivated Comments 10/26/2012 9:03 PM 10/27/2012 3:01 AM * Full Code Date Activated Date Inactivated Comments 02/08/2011 8:02 PM 02/11/2011 4:09 PM * Full Code Date Activated Date Inactivated Comments 02/07/2011 7:35 PM 02/08/2011 8:02 PM * Full Code Date Activated Date Inactivated Comments 02/02/2011 10:53 AM 02/06/2011 7:56 PM Care Teams Director Cost Relationship Specialty Start Date End Date Carlos Rojo MD PCP - General Family Practice 06/01/11
--- OUTSIDE RECORDS SUMMARY | 2024-10-19 21:42 | XMS_ITS ---
Author Organization [facility] [place] ([address]) Address [address] [place] [address] Care Team Providers Care Outbound Supervisor Name Role Phone Carlos Rojo MD Primary Care Provider Unavaila Margareth Aguilera Unavailable [phone] ZZ-Migration, Provider Unavailable Unavailab le REASON FOR VISIT Multum To [facility] Conversion Encounter Medications Medication SIG (Take, [...] review and pick correct strength-formulati on from [facility] options. If intended option is not [...] Active Encounters Encounter Location Date Provider Diagnosis [address] [place] [address] 08/27/2023 Provider ANT-Migration Plan Of Treatment No Information Progress Notes * Latonya ROMERO RDOB:05/1980 (44 yo F)Acc No.[id number]:08/27/2023 Patient: Latonya GOOD Provider: Zara Malik :1980 A ge:43 Y S ex:Female Date:08/27/2023 Address:[address] [place], [place] [address] Pcp:Carlos Rojo MD Subjective: * Chief Complaints: [...] Electronic signature of Prov ider ZZ-Migration on 10/19/2024 at 09:42 PM CDT Sign off status: Pending * Provider: Zara Malik Date: 0 08/27/2023 Generated for Ludy arteaga/Darryl/Greggitting on: 0 10/19/2024 09:42 PM CDT
--- OUTSIDE RECORDS SUMMARY | 2024-10-19 21:43 | XMS_ITS | Clinical Summary ---
Author Organization [address] Address [facility] [place] [address] Care Team Providers Care Client Success Specialist Name Role Phone Carlos Rojo MD Primary [...] on file Legal Sex Female 11:54 PM CLINICAL APPEALS REVIEWER Gender Identity Not on file Sexual Orientation [...] - season) 2023 05/17/2020, 04/19/2020 Influenza Vaccine (#1) 2024 , 04/26/2019, 01/12/2017, Additional history exists HPV Vaccines Aged Out No longer eligi ble based on patient's age to complete this topic Pneumococcal vaccine <65 Aged Out No longer eligible based on patient's age to complete this topic Insurance [facility] Care Teams Client Success Specialist Relationship Specialty Start Date End Date Carlos Rojo MD [address] [facility] [address] [place] [address] PCP - General Family Medicine 12/16/22
--- OUTSIDE RECORDS SUMMARY | 2024-10-19 21:43 | XMS_ITS | Patient Health Record ---
Author Organization [employer] Address 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
--- OUTSIDE RECORDS SUMMARY | 2024-10-19 21:43 | XMS_ITS | Clinical Summary ---
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
--- NOTE | 2024-10-19 21:48 | PC.NURSE ---
Pt triaged w/ c/o possible dehydration and feeling weak w/ onset tonight around 8:30 pm. Pt states she has been vomiting as well and was out in sun for a while today. VSS at this time, will bring pt to when available.
[2024-10-19 21:50] VITALS: BP 124/81; PULSE 82; RESP 20; TEMP 36.2; O2SAT 98
--- NOTE | 2024-10-19 22:22 | ED.GENADULT ---
HPI - General Adult General Chief complaint: Unspecified Stated complaint: dehydration Time Seen by Provider: 10/19/24 22:21 Source: patient Mode of arrival: ambulatory Limitations: no limitations History of Present Illness HPI narrative: Patient is a 44-year-old female with exposure to sun for almost 2 hours today and started to feel some weakness and dehydration after that event. She also had a headache. She does get headaches from time to time regularly. Onset (ago): day(s) ( One) Location: head ( mild to moderate headache) Radiation: non-radiation Severity: mild Severity scale (1-10): 1 Quality: sharp Pain Consistency: constant Relieving factors: none Exacerbating factors: none Associated symptoms: malaise and weakness Treatments prior to arrival: none Related Data Allergies Allergy/AdvReac Type Severity Reaction Status Date / Time iodine Allergy Unknown swollen Verified 08/03/24 10:55 neck gluten Allergy Nausea Verified 08/03/24 10:55 SHELLFISH Allergy Severe swollen Uncoded 08/03/24 10:55 neck Review of Systems Review of Systems: All systems reviewed & are unremarkable except as noted in HPI and below Constitutional: Constitutional: Reports no additional constitutional complaints Eyes: Eyes: Reports no additional eye complaints ENT: Reports system reviewed and no additional complaints, except as documented Cardiovascular: Cardiovascular: Reports no additional cardiovascular complaints Respiratory: Respiratory: Reports no additional respiratory complaints Gastrointestinal: Gastrointestinal: Reports no additional gastrointestinal complaints Genitourinary: Genitourinary: Reports no additional female genitourinary complaints Musculoskeletal: Musculoskeletal: Reports no additional musculoskeletal complaints Integumentary/Breasts: Skin/Breast: Reports system reviewed and no additional complaints, except as docu Neurologic: Reports system reviewed and no additional complaints, except as documented Psychiatric: Psychiatric: Reports no additional psychiatric complaints Endocrine: Endocrine: Reports no additional endocrine complaints Hematologic/Lymphatic: Hematologic/Lymphatic: Reports no additional hematologic/lymphatic complaints Allergic/Immunologic: Allergic/Immunologic: Reports no additional allergic/immunologic complaints [facility] Past Medical History Medical History Anxiety Hypothyroidism Gluten intolerance Kidney stones Family History Family History Other Diabetes mellitus Social History Social History Smoking status: Never smoker Second hand tobacco smoke exposure: No Alcohol intake: current Alcohol use details: 3 to 4 drinks a year Substance use: never Substance use type: does not use Living arrangements: with family Occupation/Education: occupation Gender identity (if verbalized by the patient): Female Exam Const: General: cooperative, healthy appearing and comfortable HENMT: Head: normal to inspection, No palpable skull fracture present and normocephalic Eyes: General: appearance normal, both eyes and all related structures Visual Villegas: normal visual villegas by confrontation Alignment and Position: alignment normal Neck: Neck: normal visual inspection, full ROM and no lymphadenopathy Chest: Chest palpation & inspection: normal inspection of the chest, normal palpation of entire chest wall and normal inspection of the chest Resp: Effort & Inspection: normal respiratory effort, able to speak in complete sentences and normal respiratory pattern Cardio: Jugular venous distension: no JVD Palpation: normal PMI Rate: regular rate Rhythm: regular rhythm Heart sounds: S1 normal heart sound present and S2 normal heart sound present GI: Inspection: normal to inspection Back/Spine/Pelvis: Back: no CVA tenderness Skin: General skin exam: normal color, no rashes or lesions noted and elasticity normal Neuro: General: oriented to person, oriented to place, oriented to time, Normal light touch and pain sensation and no meningeal signs Extrem: General: normal to inspection, full ROM and capillary refill normal Psych: Appearance: grossly normal, well kempt and not disheveled Course Vital Signs Vital signs: Vital Signs Temperature 36.2 C L 10/19/24 21:50 Pulse Rate 82 10/19/24 21:50 Respiratory Rate 20 10/19/24 21:50 Blood Pressure 124/81 10/19/24 21:50 Pulse Oximetry 98 10/19/24 21:50 Oxygen Delivery Room Air 10/19/24 21:50 Temperature 36.6 C 10/20/24 00:43 Pulse Rate 78 10/20/24 00:43 Respiratory Rate 18 10/20/24 00:43 Blood Pressure 121/72 10/20/24 00:43 Pulse Oximetry 100 10/20/24 00:43 Oxygen Delivery Room Air 10/20/24 00:43 Medical Decision Making MDM Narrative Medical decision making narrative: patient is a 44-year-old female with some dehydration after being in the sun today and not feeling well. IV fluids. Labs. UA. Toradol. Vital Signs Vital Signs: Vital Signs Temperature 36.2 C L 10/19/24 21:50 Pulse Rate 82 10/19/24 21:50 Respiratory Rate 20 10/19/24 21:50 Blood Pressure 124/81 10/19/24 21:50 Pulse Oximetry 98 10/19/24 21:50 Oxygen Delivery Room Air 10/19/24 21:50 Temperature 36.6 C 10/20/24 00:43 Pulse Rate 78 10/20/24 00:43 Respiratory Rate 18 10/20/24 00:43 Blood Pressure 121/72 10/20/24 00:43 Pulse Oximetry 100 10/20/24 00:43 Oxygen Delivery Room Air 10/20/24 00:43 Lab Data Lab results reviewed: Yes I reviewed the patient's lab results. 10/19/24 22:37 10/19/24 22:37 Labs: Lab Results 10/19/24 10/19/24 Range/Units 22:37 23:18 WBC 8.6 (4.8-10.8) K/mm3 RBC 4.45 (4.20-5.40) M/mm3 Hgb 11.6 L (12.0-15.0) g/dL Hct 37.2 (35.0-49.0) % MCV 83.6 (78.0-102.0) fL MCH 26.1 L (27.0-31.0) pg MCHC 31.2 L (32-36) g/dL RDW 14.5 H (11.6-14.4) % Plt Count 258 (150-420) K/mm3 MPV 10.5 (9.2-11.8) fl Immature Gran % (Auto) 0.2 H (0.0-0.0) % Neut % (Auto) 76.3 H (50.0-70.0) % Lymph % (Auto) 15.4 L (18.0-42.0) % [place] % (Auto) 5.8 (2.0-11.0) % Eos % (Auto) 2.0 (1.0-6.0) % Baso % (Auto) 0.3 (0.0-1.0) % Lymph # (Auto) 1.32 (1.10-4.50) K/mm3 [place] # (Auto) 0.50 (0.10-0.90) K/mm3 Eos # (Auto) 0.17 (0.02-0.50) K/mm3 Baso # (Auto) 0.03 (0.00-0.10) K/mm3 Abs Immat Gran (auto) 0.02 H (0.00-0.00) K/mm3 Absolute Neuts (auto) 6.55 (1.70-7.20) K/mm3 Absolute Nucleated RBC 0.00 (0.00-0.00) K/mm3 Nucleated RBC % 0.0 (0-0.0) % Sodium 139 (137-145) mmol/L Potassium 3.9 (3.4-5.0) mmol/L Chloride 107 (98-107) mmol/L Carbon Dioxide 26 (22-30) mmol/L Anion Gap 6 (4-12) mmol/L BUN 11 (7-17) mg/dL Creatinine 0.86 (0.7-1.0) mg/dL Estim Creat Clear Calc 80 ml/min Estimated GFR > 60 (59 - ) Glucose 150 H (65-110) mg/dL Calculated Osmolality 290 (285-295) mOsm/kg Calcium 9.2 (8.4-10.2) mg/dL Magnesium 2.1 (1.6-2.3) mg/dL Total Bilirubin 0.4 (0.2-1.3) mg/dL AST 33 (14-36) U/L ALT 22 (6-35) U/L Alkaline Phosphatase 78 (38-126) U/L Total Protein 7.6 (6.3-8.2) g/dL Albumin 4.4 (3.5-5.1) g/dL Urine Color Light yellow (Yellow) Urine Appearance Clear (Clear) Urine pH 6.0 (5.0-8.0) Ur Specific [place] <= 1.005 L (1.010-1.020) Urine Protein Negative (Negative) Urine Glucose (UA) Negative (Negative) Urine Ketones Negative (Negative) Ur Blood (Man) 1+ H (Negative) Urine Nitrate Negative (Negative) Urine Bilirubin Negative (Negative) Urine Urobilinogen 0.2 (0.2-1.0) mg/dL Leukocyte Esterase Rfl Negative (Negative) JAVED/UL Urine RBC 0-2 (0-2) /hpf Discharge Plan Discharge Clinical Impression: Dehydration Patient Disposition: Home Condition: Improved Instructions: Dehydration (DC) Patient Language: Slovenian Prescriptions: No Action albuterol sulfate 90 mcg/actuation HFA aerosol inhaler 1 inh inhalation Q4H PRN (Reason: shortness of breath or wheezing) Qty: 6.7 3RF montelukast [Singulair] 10 mg tablet 10 mg PO DAILY Qty: 90 2RF sertraline 100 mg tablet See Rx Instructions .ROUTE .COMPLEX Qty: 135 2RF Dose Instruction: TAKE 1 AND 1/2 TABLETS BY MOUTH EVERY DAY Rx Instructions: TAKE 1 AND 1/2 TABLETS BY MOUTH EVERY DAY levothyroxine [Synthroid] 50 mcg tablet 50 mcg PO DAILY Qty: 30 2RF atorvastatin 10 mg tablet See Rx Instructions .ROUTE .COMPLEX Qty: 90 2RF Dose Instruction: TAKE 1 TABLET BY MOUTH DAILY Rx Instructions: TAKE 1 TABLET BY MOUTH DAILY Follow-up/Referrals: Carlos Rojo MD [Primary Care Provider] - Time of Disposition: 00:31
--- OUTSIDE RECORDS SUMMARY | 2024-10-19 22:35 | XMS_ITS | Clinical Summary ---
Author Organization [facility] Address [address] [place] [address] Phone Care Team Providers Care Asbestos Cement Sheet Supervisor Name Role Phone Carlos Rojo MD Primary Care Provider [phone] Allergies Active Allergy Reactions Criticality Noted Date [...] AQ) 55 mcg nasal spray Administer 1 [place] in each nostril daily. 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
--- OUTSIDE RECORDS SUMMARY | 2024-10-19 22:35 | XMS_ITS | Encounter Summary ---
Author Organization [facility] Address [address] [place] [address] Care Team Providers Care Physical Plant Manager Name Role Phone Carlos Rojo MD Primary Care Provider [phone] Reason for Visit * Reason Comments Medication Refill Encounter Details Date Type Department Care Team (Late st Contact Info) Description 04/08/2017 Refill [facility] [address] [place] [address] Araceli Castellon MD [address] [place] [address] Social History Tobacco Use Types Packs/Day Years Used Date Smoking Tobacco: Never Alcohol Use Standard Drinks/Week Comments No 0 (1 standard drink = 0.6 oz pur e alcohol) Comments Unknown Sex and Gender Information Value Date Recorded Sex Assigned at Not on file 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 DRILLER HELPER documented in this encounter Plan of Treatment Not on file documented as of this encounter Visit Diagnoses Not on filedocumented in this encounter Care Teams Physical Plant Manager Relationship Specialty Start Date End Date Carlos Rojo MD PCP - General Family Practice 06/01/11 documented as of this encounter
--- OUTSIDE RECORDS SUMMARY | 2024-10-19 22:36 | XMS_ITS | Clinical Summary ---
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
--- OUTSIDE RECORDS SUMMARY | 2024-10-19 22:36 | XMS_ITS | Clinical Summary ---
Author Organization [address] Address 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 Care Teams Appliance Repairer Relationship Specialty Start Date End Date Carlos Rojo MD [address] [facility] [address] [place] [address] PCP - General Family Medicine 12/16/22
[2024-10-19] MEDS: SODIUM CHLORIDE 0.9% IV 1,000 ML 999 ML IV CONT (22:43)
[2024-10-19 22:46] LABS: Hematocrit 37.2 % (35.0-49.0); Hemoglobin 11.6 g/dL (12.0-15.0); Immature Granulocyte Percent A 0.2 % (0.0-0.0); Lymphocytes Absolute Auto 1.32 K/mm3 (1.10-4.50); Mean Corpuscular HGB Conc 31.2 g/dL (32-36); Mean Corpuscular Hemoglobin 26.1 pg (27.0-31.0); Mean Corpuscular Volume 83.6 fL (78.0-102.0); Nucleated Red Blood Cells Absolute Auto 0.00 K/mm3 (0.00-0.00); Nucleated Red Blood Cells Perc 0.0 % (0-0.0); Platelet Count Result 258 K/mm3 (150-420); Red Blood Count 4.45 M/mm3 (4.20-5.40); White Blood Count 8.6 K/mm3 (4.8-10.8)
[2024-10-19] MEDS: ONDANSETRON INJ 4 MG/2 ML VIAL IV PUSH (22:46)
[2024-10-19 22:54] LABS: Alanine Aminotransferase 22 U/L (6-35); Albumin Level 4.4 g/dL (3.5-5.1); Alkaline Phosphatase 78 U/L (38-126); Anion Gap 6 mmol/L (4-12); Aspartate Amino Transferase 33 U/L (14-36); Bilirubin,Total 0.4 mg/dL (0.2-1.3); Blood Urea Nitrogen 11 mg/dL (7-17); Calcium 9.2 mg/dL (8.4-10.2); Carbon Dioxide 26 mmol/L (22-30); Chloride 107 mmol/L (98-107); Estimated CRCL calculation 80 ml/min; Estimated Glomerular Filt Rate > 60; Glucose 150 mg/dL (65-110); Magnesium 2.1 mg/dL (1.6-2.3); Osmolality Calculated 290 mOsm/kg (285-295); Potassium 3.9 mmol/L (3.4-5.0); Sodium 139 mmol/L (137-145); Total Protein 7.6 g/dL (6.3-8.2)
[2024-10-19] MEDS: KETOROLAC 30 MG/ML VIAL (*BKC) IV PUSH (23:29)
[2024-10-19 23:39] LABS: Add Urine Microscopic? YES; Appearance Urine Clear (Clear); Glucose Urine UA Negative (Negative); Leukocyte Esterase Ur Negative LEU/UL (Negative); Nitrate Urine Negative (Negative); Specific Grav Ur <= 1.005 (1.010-1.020)
[2024-10-20 00:43] VITALS: BP 121/72; PULSE 78; RESP 18; TEMP 36.6; O2SAT 100
== END 2024-10-20 00:43 | disposition home or self-care (01) ==
PROVIDERS: Emergency Provider Emergency Medicine; PCP Family Medicine
DX: E86.0 Dehydration (principal); E03.9 Hypothyroidism, unspecified
CPT/HCPCS: 36415; 80053; 81001; 83735; 85025; 96361; 96374; 96375; 99284; J1885; J2405; J7030

== ENCOUNTER 2025-02-22 00:35 | Day surgery (SDC) | payer OTHER, SELFPAY ==
--- OUTSIDE RECORDS SUMMARY | 2023-08-27 15:30 | XMS_ITS ---
Author Organization [facility] [place] ([address]) Address [address] [place] [address] Care Team Providers Care Devops Developer Name Role Phone Carlos Rojo MD Primary Care Provider Unavaila Margareth Aguilera Unavailable [phone] ZZ-Migration, Provider Unavailable Unavailab le REASON FOR VISIT [facility] To [facility] Conversion Encounter Medications Medication SIG (Take, Route, Frequency, Duration) Notes Start Date End Date Status Xopenex HFA 45 MCG/ACT 2 puff(s) inhaled Q4-6 hours, PRN and per the asthma action plan; Duration: 30 day(s) Active Singulair 10 MG 1 tab(s) orally once a day (in the evening); Duration: 90 days Active Unithroid 75 MCG (0.075 MG) 1 TAB(S) ORALLY ONCE A DAY; Duration: 30 DAY(S) *Please review and pick correct strength-formulati on from [facility] options. If intended option is not shown, discontinue and re-order from Quick Search* 08/03/2022 Active Symbicort 160-4.5 MCG/ACT 2 puff(s) inhaled 2 times a day; Duration: 90 days Active predniSONE 20 MG 3 tab(s) orally once a day; Duration: 5 day(s) 11/09/2022 Active ZyrTEC Allergy 10 MG 1 tab(s) orally onc e a day Active Sertraline HCl 100 MG 1 tab(s) orally once a day Active Nasacort Allergy 24HR 55 MCG/ACT 2 spray(s) intranasally once a day; Duration: 30 day(s) Active Atorvastatin Calcium 10 MG 1 tab(s) orally once a day Active Encounters Encounter Location Date Provider Diagnosis [address] [place] [address] 08/27/2023 Provider ZMariel-Migration Plan Of Treatment No Information Progress Notes * Latonya ROMERO RDOB:05/1980 (44 yo F)Acc No.[id number]:08/27/2023 Patient: Latonya GOOD Provider: Zara Malik :1980 A ge:43 Y S ex:Female Date:08/27/2023 Address:[address] [place], [place] [id number] Pcp:Carlos Rojo MD Subjective: * Chief Complaints: * 1 . [facility] To [facility] Conversion Encounter. * Medical History: * Medications: T aking ZyrTEC Allergy 10 MG Tablet 1 tab(s) orally once a day , Taking Nasacort Allergy 24HR 55 MCG/ACT Aerosol 2 spray(s) intranasally once a day , Taking Sertraline HCl 100 MG Tablet 1 tab(s) orally once a day , Taking Atorvastatin Calcium 10 MG Tablet 1 tab(s) orally once a day , Taking Unithroid 75 MCG (0.075 MG) TABLET 1 TAB(S) ORALLY ONCE A DAY , Notes to Pharmacist: *Please review and pick correct strength-formulation from [facility] options. If intended option is not shown, discontinue and re-order from Quick Search*, Taking predniSONE 20 MG Tablet 3 tab(s) orally once a day , Taking Symbicort 160-4.5 MCG/ACT Aerosol 2 puff(s) inhaled 2 times a day , Taking Xopenex HFA 45 MCG/ACT Aerosol 2 puff(s) inhaled Q4-6 hours, PRN and per the asthma action plan , Taking Singulair 10 MG Tablet 1 tab(s) orally once a day (in the evening) Objective: * Vitals: Assessment: Plan: * Treatment: * Billing Information: * Visit Code: * Procedure Codes: * Electronic signature of Prov ider ZZ-Migration on 02/22/2025 at 12:39 AM SWING DRIVER Sign off status: Pending * Provider: Zara Malik Date: 0 08/27/2023 Generated for Ludy arteaga/Darryl/Greggitting on: 1 04/25/2024 12:39 AM SWING DRIVER
[2025-02-04 10:45] VITALS: BMI 34.9
--- OUTSIDE RECORDS SUMMARY | 2025-02-22 00:39 | XMS_ITS | Clinical Summary ---
Author Organization [facility] Address [address] [place] [address] Phone Care Team Providers Care Molded Candles Wicker Name Role Phone Carlos Rojo MD Primary Care Provider [phone] Allergies Active Allergy Reactions Criticality Noted Date [...] AQ) 55 mcg nasal spray Administer 1 [place] in each nostril daily. 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 Gender Identity Not on file Sexual Orientation [...] CANCER SCREENING 2018 DTAP/TDAP/TD VACCINES (2 - Td or Tdap) 07/10/2019 COLORECTAL SCREENING 2023 Colorectal Cancer Screening 2023 FIT-DNA Q 3 years 2023 FIT/FOBT Q 1 year 2023 Flex Sig/CT Colonography Q 5 years 2023 INFLUENZA VACCINE (#1) 2024 12/13/2011, 2008 HPV VACCINES (No Doses Required) Completed Advance Directives For more information, please contact: [phone] * Full Code (Latest Code Status on [...] 10:53 AM 02/06/2011 7:56 PM Care Teams Molded Candles Wicker Relationship Specialty Start Date End Date Carlos Rojo MD PCP - General Family Practice 06/01/11
--- OUTSIDE RECORDS SUMMARY | 2025-02-22 00:40 | XMS_ITS | Patient Health Record ---
Author Organization [facility] Address 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
--- OUTSIDE RECORDS SUMMARY | 2025-02-22 00:40 | XMS_ITS | Clinical Summary ---
Author Organization [address] Address [facility] [place] [address] Care Team Providers Care Buckle Inspector Name Role Phone Carlos Rojo MD Primary [...] Active medroxyPROGESTERo ne (PROVERA) 10 mg tablet Active triamcinolone (NASACORT) 55 mcg nasal inhaler Administer 1 spray into affected nostril(s) daily Active predniSONE (DELTASONE) 10 mg tablet Take 5 tabs (50mg) daily for 2 days, then take 4 tabs (40mg) daily for 2 days. Continue to decrease by 1 tab (10mg) every 2 days until gone. 30 tablet Active estradioL 10 mg pellet by implant route Active Active Problems Problem Noted Date Diagnosed Date Asymptomatic microscopic hematuria 12/16/2022 Rolly's thyroiditis 12/16/2022 Primary generalized (osteo)arthritis 12/16/2022 Vitamin D deficiency 12/16/2022 Acquired hypothyroidism 05/26/2016 Heart murmur 02/08/2011 Knee pain 09/09/2010 Encounters Date Type Department Care Team Description 01/03/2025 3:30 PM CDT Office Visit [facility] at [address] [address] Xiomy Regan NP Acute maxillary sinusitis, recurrence not specified (Primary Dx) from Last 3 Months Medical History Medical History Date Comments Calculus of kidney 2007 kidney stones Personal history of other di seases of the respiratory system Personal history of asthma - (Added by TW Conv) Anxiety disorder Anxiety - (Adde d by TW Conv) Personal history of other di seases of urinary system History of hematuria - (Adde d by TW Conv) Family History Medical History Relation Name [...] on file 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 Gender Identity Not on file Sexual Orientation Not on file Last Filed Vital Signs Vital Sign Reading Time Taken Comments Blood Pressure 121/91 01/03/2025 3:40 PM CDT Pulse 77 01/03/2025 3:40 PM CDT Temperature 36.7 C (98 F) 01/03/2025 3:40 PM CDT Respiratory Rate 18 01/03/2025 3:40 PM CDT Oxygen Saturation 98% 01/03/2025 3:40 PM CDT Inhaled Oxygen Concentration - - Weight 89.1 kg (196 lb 6.4 oz) 01/03/2025 3:40 P M CDT Height 167.6 cm (5' 5.98) 01/03/2025 3:40 PM CD T Body Mass Index 31.72 01/03/2025 3:40 PM CDT Plan of Treatment Health Maintenance Due Date Last Done Comments Breast Cancer Screening-Mammogram 1978 Cervical Cancer Screening 1978 Colon Cancer Screening-Colonoscopy 1978 Depression Screening 1978 Hepatitis C Screening 1978 Hepatitis B Screening 1996 Regular Well Visit/Exam 18-64 1996 Pneumococcal vaccine <65 (1 of 2 - PCV) 1997 DTaP/Tdap/Td Vaccine (2 - Td or Tdap) 07/10/2019 07/09/2009 Covid-19 Vaccine (3 - Pfizer risk series) 06/14/2020 05/17/2020, 04/19/2020 Influenza Vaccine (#1) 2024 , 04/26/2019, 01/12/2017, Additional history exists HPV Vaccines Aged Out No longer eligi ble based on patient's age to complete this topic Insurance [employer] [facility] Care Teams Buckle Inspector Relationship Specialty Start Date End Date Carlos Rojo MD [address] [facility] [address] [place], [place] [id number] PCP - General Family Medicine 12/16/22
--- OUTSIDE RECORDS SUMMARY | 2025-02-22 00:40 | XMS_ITS | Clinical Summary ---
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 Not on file Not [...] Date Last Done Comments Cervical Cancer Screening Pap Smear (Age 30 to 64) Every 3 Years 1978 Colorectal Cancer Screening Colonoscopy (10 Years) 1978 Annual Physical 1981 Hepatitis C 1996 Hepatitis B Vaccines (1 of 3 - 19+ 3-dose series) 1997 Cervical Cancer Screening Pap with HPV Testing (Age 30 to 64) Every 5 Years 2008 Cervical Cancer Screening with HPV 2008 Mammogram Screening 2018 DTaP, Tdap and Td Vaccines (2 - Td or Tdap) 07/10/2019 07/09/2009 COVID-19 Vaccine (4 - season) 2024 03/13/2021, 05/17/2020, 04/19/2020 Influenza Adult (#1) 2024 03/12/2021, 02/18/2020, 04/26/2019, Additional history exists Hepatitis A Vaccines Aged Out No long er eligible based on patient's age to complete this topic Meningococcal B Vaccine Aged Out No l onger eligible based on patient's age to complete this topic Meningococcal Vaccine Aged Out No larry bela eligible based on patient's age to complete this topic Pneumococcal Vaccine: Pediatrics (0 to 5 Years) and At-Risk Patients (6 to 49 Years) Aged Out No longer eligible based on patient's age to complete this topic RSV Immunizations Under 20 Months Aged Out No longer eligible based on patient's age to complete this topic Insurance [employer] Care Teams Nutritional Health Coach Relationship Specialty Start Date End Date Carlos Rojo MD [address] [place] [address] PCP - General FAMILY PRACTICE 05/12/21 Ofe Garcia MD [address] [place] [address] Consulting Physician CARDIOVASCULAR DISEASE 05/12/21
--- OUTSIDE RECORDS SUMMARY | 2025-02-22 00:40 | XMS_ITS | Patient Health Record ---
Author Organization [facility] [employer] ([address]) Address [address] [place] [address] Care Team Providers Care Net Programmer Name Role Phone Carlos Rojo MD Primary Care Provider Margareth Ibarra Unavailable [phone] Allergies No Known Allergies Reason For Referral [...] Insured Coverage Start Date Coverage End Date [facility] [address] [address] [place], [place] [id number] Latonya Cramer Self - patient is the insured Medical (General) History Medical History History ICD Code Graves' disease Moderate persistent asthma, uncomplicate d J45.40 Allergic rhinitis due to pollen J30.1 Allergic rhinitis due to animal (cat) (d og) hair and dander J30.81 Other allergic rhinitis J30.89 Surgical History Surgery Date(Month/Year) x 4 1994,2009,2010,2012
[2025-02-22 08:46] VITALS: BP 113/59; PULSE 93; RESP 16; TEMP 36.2; O2SAT 99
[2025-02-22 08:50] LABS: BEDSIDEPREGUCG Negative (Negative)
[2025-02-22] MEDS: LACTATED RINGERS 1,000 ML 150 ML IV CONT (08:57)
--- NOTE | 2025-02-22 09:01 | WPDANESEPPF ---
Anes - Initial Pre Proc Eval Procedure: Operation Date: 02/22/25 10:00 Proposed Procedures p Screening Colonoscopy - Luis Alberto Roach MD Date/Time: 02/22/25 09:01 Surgeon: Luis Alberto Roach MD Pre Op Diagnosis: Screening Patient Data Age: 44 Gender: F Height: 1.65 m Weight: 86.2 kg Last Vital Signs Temp 36.2 C L 02/22/25 08:46 Pulse 93 02/22/25 08:46 Resp 16 02/22/25 08:46 BP 113/59 L 02/22/25 08:46 Pulse Ox 99 02/22/25 08:46 O2 Del Method Room Air 02/22/25 08:46 Allergies Allergy/AdvReac Type Severity Reaction Status Date / Time iodine Allergy Unknown swollen Verified 02/22/25 08:38 neck gluten Allergy Nausea Verified 02/22/25 08:38 Home Medications ?Medication ?Instructions ?Recorded ?Confirmed ?Type albuterol sulfate 90 mcg/actuation 1 inh inhalation Q4H PRN shortness 08/03/24 02/04/25 Rx aerosol inhaler of breath or wheezing #6.7 grams montelukast 10 mg tablet 10 mg PO DAILY #90 tabs 08/03/24 02/22/25 Rx (Singulair) sertraline 100 mg tablet See Rx Instructions .Route 08/03/24 02/22/25 Rx .COMPLEX #135 tabs atorvastatin 10 mg tablet See Rx Instructions .Route 09/25/24 02/22/25 Rx .COMPLEX #90 tabs levothyroxine 75 mcg tablet 75 mcg PO .COMPLEX #34 tabs 02/11/25 02/22/25 Rx Laboratory Tests 02/22/25 08:46 POC Urine HCG, Qual Negative (Negative) Patient hx anesthesia problems: none Family hx anesthesia problems: none Results Review: All pre-operative results and documents have been reviewed as part of the pre-operative evaluation. [facility] Past Medical History Medical History Anxiety Hypothyroidism Gluten intolerance Kidney stones Family History Family History Other Diabetes mellitus Social History Social History Smoking status: Never smoker Second hand tobacco smoke exposure: No Alcohol intake: current Alcohol use details: 3 to 4 drinks a year Substance use: never Substance use type: does not use Living arrangements: with family Occupation/Education: occupation Gender identity (if verbalized by the patient): Female Spiritual care concerns: No Anes - Eval Final PreProcedure Day of Procedure 02/22/25 09:01 Patient weight: obese Heart: regular rate and rhythm Lungs: clear to auscultation Airway: Mallampati scale class II Neurological: alert and oriented Last oral intake: >/= 8 hours ASA classification: II Emergent: no Anesthetic plan: proceed Anesthesia type and monitoring: general GIVS and standard monitoring Results Review: All pre-operative results and documents have been reviewed as part of the pre-operative evaluation. Informed Consent: The patient's anesthetic plan and its attendant risks and benefits were discussed with the patient/family/POA. Questions were solicited and answers provided to the satisfaction of the patient/family/POA.
--- NOTE | 2025-02-22 09:22 | P.HP_ITS ---
H&P: HPI History of Present Illness Date/Time: 02/22/25 09:22 Chief Complaint: Screening colonoscopy Narrative: This is the patient's first colonoscopy. There are no GI symptoms and there is no family history of colorectal cancer. Review of Systems Review of Systems: All systems reviewed & are unremarkable except as noted in HPI and below PMFSH Past Medical History Medical History Anxiety Hypothyroidism Gluten intolerance Kidney stones Family History Family History Other Diabetes mellitus Social History Social History Smoking status: Never smoker Second hand tobacco smoke exposure: No Alcohol intake: current Alcohol use details: 3 to 4 drinks a year Substance use: never Substance use type: does not use Living arrangements: with family Occupation/Education: occupation Gender identity (if verbalized by the patient): Female Spiritual care concerns: No Meds Home Medications and Allergies Home Medications ?Medication ?Instructions ?Recorded ?Confirmed ?Type albuterol sulfate 90 mcg/actuation 1 inh inhalation Q4 H PRN shortness 08/03/24 02/04/25 Rx aerosol inhaler of breath or wheezing #6.7 g arnoldo montelukast 10 mg tablet 10 mg PO DAILY #90 tabs 07/1302/22/25 Rx (Singulair) sertraline 100 mg tablet See Rx Instructions .Route 0 08/03/24 02/22/25 Rx .COMPLEX #135 tabs atorvastatin 10 mg tablet See Rx Instructions .Route 0 09/25/24 02/22/25 Rx .COMPLEX #90 tabs levothyroxine 75 mcg tablet 75 mcg PO .COMPLEX #34 tab s 02/11/25 02/22/25 Rx Allergies Allergy/AdvReac Type Severity Reaction Status Date / Time iodine Allergy Unknown swollen Verified 02/22/25 08:38 neck gluten Allergy Nausea Verified 02/22/25 08:38 Vital Signs Vital Signs - 24 hr 02/22/25 08:46 Temperature 97.2 F L Pulse Rate 93 Respiratory Rate 16 Blood Pressure 113/59 L Pulse Oximetry 99 Oxygen Delivery Room Air Exam Const: General: cooperative and healthy appearing Resp: Effort & Inspection: normal respiratory effort and able to speak in complete sentences Auscultation: clear to auscultation bilaterally Cardio: Rate: regular rate Rhythm: regular rhythm GI: Inspection: normal to inspection GI Palp: No No hepatosplenomegaly present Auscultation: normal bowel sounds Rectal Exam: deferred Skin: General skin exam: normal color Psych: Appearance: grossly normal Mental Status: mental status grossly normal Assessment and Plan Assessment and plan (1) Encounter for screening colonoscopy: Code(s): Z12.11 - Encounter for screening for malignant neoplasm of colon Status: Acute Assessment and Plan: The patient is deemed a good candidate for the procedure. Consent signed. Will proceed.
[2025-02-22 09:46] VITALS: BP 98/51; PULSE 65; RESP 15; O2SAT 99
[2025-02-22 09:56] VITALS: BP 108/57; PULSE 60; RESP 16; O2SAT 99
[2025-02-22 10:06] VITALS: BP 127/71; PULSE 66; RESP 15; O2SAT 100
== END 2025-02-22 10:11 | disposition home or self-care (01) ==
PROVIDERS: Anesthesiology; PCP Family Medicine; Referring Provider Physician Assistant; Visit Provider Internal Medicine Gastroenterology
PROC: 0DJD8ZZ Inspection of Lower Intestinal Tract, Via Natural or Artificial Opening Endoscopic (ICD-10-PCS; CPT 45378; principal; 2025-02-22 10:00)
DX: Z12.11 Encounter for screening for malignant neoplasm of colon (principal); E66.9 Obesity, unspecified; Z68.31 Body mass index [BMI] 31.0-31.9, adult
CPT/HCPCS: 45378; J2003; J2704; J7120